=== PATIENT | male | born 1955 | race Caucasian/White ===

== ENCOUNTER 2020-10-06 08:42 | Outpatient (CLI) | payer MEDICARE, OTHER, SELFPAY ==
--- NOTE | 2020-10-06 09:00 | US_ITS ---
WS: [id number] ULTRASOUND THYROID TECHNIQUE: Ultrasound of the thyroid. CLINICAL INFORMATION: THYROIDITIS COMPARISON: None. FINDINGS: Thyroid: Right and left thyroid lobes are normal in size and echotexture. No thyroid nodules are pres ent. Incidental tiny colloid cyst right thyroid measuring 3 mm Right thyroid lobe: 5.6 cm x 1.7 cm x 1.8 cm Left thyroid lobe: 6.0 cm x 1.8 cm x 1.5 cm. Isthmus: 0.3 mm. Cervical lymphadenopathy: None. US/US thyroid [id number] IMPRESSION: Unremarkable thyroid ultrasound
== END 2020-10-06 08:43 | disposition home or self-care (01) ==
LOC: RAD 08:55
PROVIDERS: PCP Internal Medicine; Visit Provider Internal Medicine
DX: E06.9 Thyroiditis, unspecified (principal)
CPT/HCPCS: 76536

== ENCOUNTER → 2020-11-23 08:19 | Outpatient (BNVA) | payer MEDICARE, OTHER, SELFPAY | PROVIDERS: PCP Internal Medicine; Visit Provider Urology | DX: R79.89 Other specified abnormal findings of blood chemistry (principal); G89.29 Other chronic pain; Z12.5 Encounter for screening for malignant neoplasm of prostate | CPT/HCPCS: 81003; 84403; G0103 ==

== ENCOUNTER → 2021-02-04 08:38 | Outpatient (BNVA) | payer MEDICARE, OTHER, SELFPAY | PROVIDERS: PCP Internal Medicine; Referring Provider Internal Medicine; Visit Provider Specialist | DX: M25.531 Pain in right wrist (principal); Z20.822 Contact with and (suspected) exposure to COVID-19 | CPT/HCPCS: 73110; 87635 ==

== ENCOUNTER 2021-02-09 05:47 | Day surgery (SDC) | payer MEDICARE, OTHER, SELFPAY ==
[2021-02-08 13:58] VITALS: BMI 27.7
[2021-02-09] VITALS (8 sets, daily range): BP systolic 83–148; BP diastolic 68–99; PULSE 64–83; RESP 17–18; TEMP 36.3–37.2; O2SAT 95–98
[2021-02-09] MEDS: acetaminophen 1,000 MG/100 ML PIGGYBACK 400 MG IV (06:34)
[2021-02-09] MEDS: CELEcoxib 200 mg Capsule 400 MG PO (06:35)
[2021-02-09] MEDS: sodium chloride 0.9% 1,000 ML 30 ML IV (06:35)
--- NOTE | 2021-02-09 06:53 | W.PM.OPSUD ---
Surgery/Procedure H&P Update DATE OF PROCEDURE: February 09, 2021 DATE H&P PERFORMED: 02/01/21 H&P UPDATE INFORMATION: I have reviewed H&P completed within last 30 days, No changes to prior documentation and H&P is in [facility] [place] on date indicated PREOP DIAGNOSIS: Right Carpal Tunnel PLANNED PROCEDURE: Operation Date: 02/09/21 07:10 Proposed Procedures p Carpal Tunnel Release 02801 G64.01(Right) - Vera Perdomo MD Related Problem List Diagnoses (1) Carpal tunnel syndrome on right:
--- NOTE | 2021-02-09 07:20 | ANES.PREANE2 ---
Pre-Anesthetic Assessment Pre-Anesthetic Assessment: Height/Weight: Height 1.85 m Weight 95.254 kg Temp Pulse Resp BP Pulse Ox 97.4 F L 68 18 148/99 95 02/09/21 06:11 02/09/21 06:11 02/09/21 06:11 02/09/21 06:11 02/09/21 06:11 Preop Diagnosis: Right Carpal Tunnel Proposed Procedure: Operation Date: 02/09/21 07:10 Proposed Procedures p Carpal Tunnel Release 51737 G64.01(Right) - Vera Perdomo MD Was Beta Allyson taken within 24 hours: Yes Was Clonidine taken within 24 hours: N/A Last intake: Intake Last Liquid Date 02/08/21 Last Liquid Time 20:00 Last Solid Date 02/08/21 Last Solid Time 20:00 Social: Social History: No alcohol and No tobacco Exam: Pre-Anes Outpt Exam: alert, oriented x 3, clear to auscultation bilaterally and regular rate & rhythm Airway: Submandibular: WNL Cervical ROM: WNL MP: 2 Dentition: Full CV/HEM: CV/HEM: HTN GI: GI: GERD Musc/skel: Musc/skel: Lower Back Pain Anesthetic Plan: ASA status: 3 Anesthesia: MAC and Regional (specify below) (Dina bonilla) Risk of > 500 ml blood loss (7ml/kg in children): No Meds/Allergies Current Medications: Current Medications Generic Name Dose Route Start Last Admin Trade Name Freq PRN Reason Stop Dose Admin Sodium Chloride 1,000 mls @ 30 ml s/hr 02/09/21 06:15 02/09/21 06:35 Sodium Chloride 0.9% IV 02/10/21 06:14 30 mls/hr .Q24H VENESSA Administration PFSH Anesthesia PFSH: Medical History Chronic pain Hyperuricemia Hypogonadism Surgical History H/O cardiac catheterization H/O endoscopy H/O foot surgery H/O rotator cuff surgery History of back surgery Family History Mother Glaucoma Father Heart disease Hypertension Social History Smoking and tobacco status: never smoked Alcohol intake: never Marital status: Data Anesthesia Cardiac Studies: No Data to Display
--- NOTE | 2021-02-09 08:14 | PM.OP ---
Operative Report Date of procedure: February 09, 2021 Pre-op Diagnosis: Right Carpal Tunnel Post-op diagnosis: same Post-op Findings: Purplish discoloration with significant compression on the median nerve Procedure Done: Right carpal tunnel release Specimens removed/disposition: None Pathology: none sent Surgeon: Vera Perdomo Transfer Driver: None Anesthesia: MAC (With Dina block, ASA 3) Estimated blood loss (mL): 0 Tourniquet time (min): 29 Tourniquet time: At 250 mmHg IV fluids (mL): 200 Urine output (mL): 0 Urine output: No Gamez Complications: None Findings: Significant purplish discoloration and compression across the median nerve. Condition: stable Disposition: PACU (Then to same-day surgery for discharge to home with family) Brief History: This 65-year-old gentleman presented with complaints of significant numbness and tingling in bilateral hands. The right was greater than the left, and after discussion and evaluation, the patient wished to proceed with operative intervention. Risks and complications including nerve injury were discussed. He wished to proceed first with the right and is planning to possibly proceed with the left release in the near future. Procedure: The patient was brought to the operating theater. The patient had a Dina block with MAC. The tourniquet was elevated to 250 mmHg for a total tourniquet time of 29 minutes. The patient was also given Ancef 2 g preoperatively. The arm was then prepped and draped with DuraPrep in usual fashion with the arm draped free. A surgical pause was performed. At the time, the surgical pause, we confirmed the site and side of surgery. We also confirmed the patient's identity, appropriate and timely administration of preoperative antibiotics and preoperative surgical markings. An incision was then made along the thenar crease. The incision crossed the wrist joint in a curvilinear fashion. Dissection continued through skin and soft tissues using a scalpel. The palmaris longus was identified along with the transverse carpal ligament. Each of these was released carefully to avoid injury to the median nerve. We were able to dissect gently into the carpal canal which was noted to be quite tight with significant compression across the median nerve. The nerve was visualized and was an hourglass shape with significant purplish discoloration. The canal was subsequently palpated to assure there was no bony encroachment upon the canal. There was a quite thickened fibrous tissue within the canal, and this was opened longitudinally as well. The canal was then palpated distally and proximally to assure that my small finger was passed easily without impingement. Finding this to be so, attention was directed to closure. The wound was irrigated with ropivacaine plain. It was then closed with 3-0 nylon in an interrupted mattress fashion. Sterile dressing was then placed consisting of Xeroform gauze, fluffed fluffs, sterile soft roll, a volar splint, and an Clemente wrap. The tourniquet was released after 29 minutes. There were no complications. There were no specimens. The procedure was well tolerated. Plan is the patient will be discharged home. Associated Problem List Diagnoses (1) Carpal tunnel syndrome on right:
--- NOTE | 2021-02-09 13:13 | ANE.PACU2 ---
Inpatient post-anesthesia follow up: Airway intact: Yes Vital signs: Temperature 98.3 F Pulse Rate 64 Respiratory Rate 18 Blood Pressure 132/97 Pulse Oximetry 98 Oxygen Delivery Me thod Room Air Oxygen Flow Rate 6 Fraction of Inspir ed Oxygen Hydration adequate: Yes Nausea and vomiting: No Pain level: 1 Mental status: Baseline
== END 2021-02-09 08:43 | disposition home or self-care (01) ==
PROVIDERS: PCP Internal Medicine; Visit Provider Specialist
PROC: (CPT 64721; principal; 2021-02-09 07:00)
DX: G56.01 Carpal tunnel syndrome, right upper limb (principal); I10 Essential (primary) hypertension; K21.9 Gastro-esophageal reflux disease without esophagitis
CPT/HCPCS: 64721; 96365; J0690; J2250; J2405; J2704; J3490; J7030

== ENCOUNTER → 2021-02-23 08:35 | Outpatient (BNVA) | payer MEDICARE, OTHER, SELFPAY | PROVIDERS: PCP Internal Medicine; Visit Provider Internal Medicine | DX: E78.2 Mixed hyperlipidemia (principal) | CPT/HCPCS: 80053; 80061; 84550 ==

== ENCOUNTER → 2021-02-24 09:37 | Outpatient (BNVA) | payer MEDICARE, OTHER, SELFPAY | PROVIDERS: PCP Internal Medicine; Visit Provider Specialist | DX: M79.641 Pain in right hand (principal) | CPT/HCPCS: 73130 ==

== ENCOUNTER → 2021-03-01 12:53 | Outpatient (BNVA) | payer MEDICARE, OTHER, SELFPAY | PROVIDERS: PCP Internal Medicine; Visit Provider Urology | DX: Z12.5 Encounter for screening for malignant neoplasm of prostate (principal); R79.89 Other specified abnormal findings of blood chemistry | CPT/HCPCS: 84403 ==

== ENCOUNTER → 2021-05-19 08:15 | Outpatient (BNVA) | payer MEDICARE, OTHER, SELFPAY | PROVIDERS: PCP Internal Medicine; Visit Provider Urology | DX: R79.89 Other specified abnormal findings of blood chemistry (principal) | CPT/HCPCS: 84403 ==

== ENCOUNTER → 2021-06-02 09:03 | Outpatient (BNVA) | payer MEDICARE, OTHER, SELFPAY | PROVIDERS: PCP Internal Medicine; Visit Provider Urology | DX: R79.89 Other specified abnormal findings of blood chemistry (principal) | CPT/HCPCS: 81003 ==

== ENCOUNTER → 2021-06-07 11:22 | Outpatient (BNVA) | payer MEDICARE, OTHER, SELFPAY | PROVIDERS: PCP Internal Medicine; Referring Provider Internal Medicine; Visit Provider Specialist | DX: M25.512 Pain in left shoulder (principal) | CPT/HCPCS: 73030 ==

== ENCOUNTER → 2021-06-21 08:39 | Outpatient (BNVA) | payer MEDICARE, OTHER, SELFPAY | PROVIDERS: PCP Internal Medicine; Visit Provider Specialist | DX: M25.512 Pain in left shoulder (principal); G56.02 Carpal tunnel syndrome, left upper limb | CPT/HCPCS: 73110; 87635 ==

== ENCOUNTER 2021-06-25 06:58 | Day surgery (SDC) | payer MEDICARE, OTHER, SELFPAY ==
[2021-06-24 13:00] VITALS: BMI 28.2
[2021-06-25 07:20] VITALS: BP 148/106; PULSE 74; RESP 18; TEMP 36.7; O2SAT 96
[2021-06-25] MEDS: acetaminophen 1,000 MG/100 ML PIGGYBACK 400 MG IV (07:41)
[2021-06-25] MEDS: sodium chloride 0.9% 1,000 ML 30 ML IV (07:41)
[2021-06-25] MEDS: CELEcoxib 200 mg Capsule 400 MG PO (07:41)
--- NOTE | 2021-06-25 07:46 | P.HPUD_ITS ---
Surgery/Procedure H&P Update DATE OF PROCEDURE: June 25, 2021 DATE H&P PERFORMED: 06/21/21 H&P UPDATE INFORMATION: I have reviewed H&P completed within last 30 days, I have examined patient prior to procedure, No changes to prior documentation and H&P is in [facility] EMR on date indicated PREOP DIAGNOSIS: Left carpal tunnel syndrome and left long trigger finger PLANNED PROCEDURE: Operation Date: 06/25/21 08:25 Proposed Procedures p Carpal Tunnel Release [id number] 18034 G56.02 M65.30(Left) - Vera Perdomo MD s Trigger Finger Release left middle finger(Left) - Vera Perdomo MD Related Problem List Diagnoses (1) Trigger finger, left middle finger: (2) Carpal tunnel syndrome, left:
--- NOTE | 2021-06-25 08:26 | ANES.PREANE2 ---
Pre-Anesthetic Assessment Pre-Anesthetic Assessment: Height/Weight: Height 1.85 m Weight 97.069 kg Temp Pulse Resp BP Pulse Ox 98.1 F 74 18 148/106 96 06/25/21 07:20 06/25/21 07:20 06/25/21 07:20 06/25/21 07:20 06/25/21 07:20 Preop Diagnosis: Left carpal tunnel syndrome and left long trigger finger Proposed Procedure: Operation Date: 06/25/21 08:25 Proposed Procedures p Carpal Tunnel Release 39113 93130 G56.02 M65.30(Left) - Vera Perdomo MD s Trigger Finger Release left middle finger(Left) - Vera Perdomo MD Was Beta Allyson taken within 24 hours: Yes Was Clonidine taken within 24 hours: N/A Last intake: Intake Last Liquid Date 06/24/21 Last Liquid Time 22:00 Last Solid Date 06/24/21 Last Solid Time 21:30 Social: Social History: No alcohol and No tobacco Exam: Pre-Anes Outpt Exam: alert, oriented x 3, clear to auscultation bilaterally and regular rate & rhythm Airway: Submandibular: WNL Cervical ROM: WNL MP: 2 Dentition: Full CV/HEM: CV/HEM: HTN GI: GI: GERD Metabolic: Metabolic: Hyperlipidemia Anesthetic Plan: ASA status: 2 Anesthesia: MAC and Regional (specify below) (Dina bonilla) Risk of > 500 ml blood loss (7ml/kg in children): No Meds/Allergies Current Medications: Current Medications Generic Name Dose Route Start Last Admin Trade Name Freq PRN Reason Stop Dose Admin Sodium Chloride 1,000 mls @ 30 ml s/hr 06/25/21 07:15 06/25/21 07:41 Sodium Chloride 0.9% IV 06/26/21 07:14 30 mls/hr .Q24H VENESSA Administration PFSH Anesthesia PFSH: Medical History Chronic pain Hyperuricemia Hypogonadism Surgical History H/O cardiac catheterization H/O endoscopy H/O foot surgery H/O rotator cuff surgery History of back surgery Family History Mother Glaucoma Father Heart disease Hypertension Social History Alcohol intake: never Marital status: History of recent travel: No Data Anesthesia Cardiac Studies: No Data to Display
[2021-06-25 09:02] VITALS: BP 154/106; PULSE 74; RESP 16; TEMP 36.3; O2SAT 98
[2021-06-25 09:05] VITALS: BP 145/102; PULSE 67; RESP 17; O2SAT 92
[2021-06-25 09:11] VITALS: BP 122/90; PULSE 65; RESP 16; TEMP 36.5; O2SAT 94
[2021-06-25 09:16] VITALS: BP 136/94; PULSE 74; RESP 18; O2SAT 97
--- NOTE | 2021-06-25 09:40 | PM.OP ---
Operative Report Date of procedure: June 25, 2021 Pre-op Diagnosis: Left carpal tunnel syndrome and left long trigger finger Post-op diagnosis: same Post-op Findings: Significant compression across the median nerve with obvious synovitis of the long finger tendons Procedure Done: Left carpal tunnel release and left long trigger finger release Pathology: none sent Surgeon: Vera Perdomo Channeling Machine Runner: None Anesthesia: MAC (With [place] block, ASA 3) Estimated blood loss (mL): 0 Tourniquet time (min): 43 Tourniquet time: At 250 mmHg IV fluids (mL): 500 Urine output (mL): 0 Urine output: No Gamez Complications: None Findings: Significant compression across the median nerve with hourglass shape and purplish discoloration. Very tight A1 fran with fluid around the tendons and evidence of synovitis. Condition: stable Disposition: PACU (Then to same-day surgery for discharge) Brief History: This 65-year-old gentleman presented with complaints of left carpal tunnel syndrome. While he was visiting in the office, he also noted that his long finger cracked . Upon evaluation he was found to have a significant left long finger trigger finger. After discussion, the patient wished to have both the carpal tunnel and trigger finger release simultaneously. Risks and complications were discussed with him. Consents were signed and questions were answered. Procedure: The patient was brought to the operating theater. The patient had a Dina block with MAC. The tourniquet was elevated to 250 mmHg for a total tourniquet time of 43 minutes. The patient was also given Ancef 2 g preoperatively. The arm was then prepped and draped with DuraPrep in usual fashion with the arm draped free. A surgical pause was performed. At the time, the surgical pause, we confirmed the site and side of surgery. We also confirmed the patient's identity, appropriate and timely administration of preoperative antibiotics and preoperative surgical markings. An incision was then made along the thenar crease. The incision crossed the wrist joint in a curvilinear fashion. Dissection continued through skin and soft tissues using a scalpel. The palmaris longus was identified along with the transverse carpal ligament. Each of these was released carefully to avoid injury to the median nerve. We were able to dissect gently into the carpal canal which was noted to be quite tight with significant compression across the median nerve. The nerve was visualized and was an hourglass shape with purplish discoloration. The canal was subsequently palpated to assure there was no bony encroachment upon the canal. The canal was then palpated distally and proximally to assure that my small finger was passed easily without impingement. Finding this to be so, attention was directed to closure. The wound was irrigated with ropivacaine plain. It was then closed with 3-0 nylon in an interrupted mattress fashion. An incision was then made along the distal palmar crease beneath the long finger. Dissection continued through the skin to the subcutaneous tissues using a scalpel. Blunt dissection was then utilized to spread soft tissues and allow access to the A1 fran. It was then incised longitudinally and sharply using a knife. This was accomplished without difficulty and atraumatically. Once the A1 fran was released, tendons were brought up out of the wound and evaluated. There were no gross masses on the tendons. Tendons were returned to their normal position. We then irrigated the wound and subsequently closed it with 3-0 nylon with an interrupted mattress type suture. Following closure of the wounds, both wounds were injected with bupivacaine into the subcutaneous tissues as a local anesthetic. Sterile dressing was then placed consisting of Dermabond, OpSite, fluffed fluffs, sterile soft roll, a volar splint, and an Clemente wrap. The tourniquet was released after 43 minutes. There were no complications. There were no specimens. The procedure was well tolerated. Plan is the patient will be discharged home. Associated Problem List Diagnoses (1) Trigger finger, left middle finger: (2) Carpal tunnel syndrome, left:
[2021-06-25 09:51] VITALS: BP 128/98; PULSE 67; RESP 18; O2SAT 96
[2021-06-25] MEDS: HYDROcodone-acetaminophen 5-325 mg Tablet 1 TAB PO (09:52)
--- NOTE | 2021-06-25 13:34 | ANE.PACU2 ---
Inpatient post-anesthesia follow up: Airway intact: Yes Vital signs: Temperature 97.7 F Pulse Rate 67 Respiratory Rate 18 Blood Pressure 128/98 Pulse Oximetry 96 Oxygen Delivery Me thod Room Air Oxygen Flow Rate Fraction of Inspir ed Oxygen Hydration adequate: No Nausea and vomiting: Yes Pain level: 1 Mental status: Baseline
== END 2021-06-25 10:02 | disposition home or self-care (01) ==
PROVIDERS: PCP Internal Medicine; Visit Provider Specialist
PROC: (CPT 64721; principal; 2021-06-25 08:15)
PROC: (CPT 26055; 2021-06-25 08:15)
DX: G56.02 Carpal tunnel syndrome, left upper limb (principal); M65.332 Trigger finger, left middle finger; I10 Essential (primary) hypertension; K21.9 Gastro-esophageal reflux disease without esophagitis; E78.5 Hyperlipidemia, unspecified
CPT/HCPCS: 26055; 64721; 96365; J0690; J2250; J3010; J3490; J7030

== ENCOUNTER 2021-07-14 09:20 | Outpatient (CLI) | payer MEDICARE, OTHER, SELFPAY ==
--- NOTE | 2021-07-14 09:30 | MR_ITS ---
WS: [id number] MRI LEFT SHOULDER HISTORY: M25.519 - Pain in unspecified shoulder COMPARISON: Radiographs 06/07/2021 TECHNIQUE: Multiplanar sequences of the shoulder joint are submitted. Mild AC joint arthritis and hypertrophy. Very minimal encroachment upon the supraspinatus tendon and muscle. No os acromion. Biceps tendon is in normal position. Mildly high riding humeral head. Mild narrowing of the glenohumeral joint mildly lobulated complex fl uid along the subdeltoid bursa over the posterior lateral humeral head. Fluid is closely associated w ith the bursal surface of the supraspinatus tendon. There is a low signal mass over the posterior hum eral head measuring 5 mm consistent with a calcific deposit. The rotator cuff appears to be intact. T here is some tendinopathy in the distal supraspinatus. No atrophy or edema. Coracohumeral ligament is normal. MR/MR shoulder LT wo con* [id number] IMPRESSION: 1. Mildly complex, lobulated subdeltoid bursal distention with an associated calcific deposit measuring 5 mm. Findings consistent with calcific tendinitis. 2. Mild AC joint arthritis. 3. No tendon tear or retraction identified.
== END 2021-07-14 09:21 | disposition home or self-care (01) ==
LOC: RADSHAW 09:24
PROVIDERS: PCP Internal Medicine; Visit Provider Specialist
DX: M13.812 Other specified arthritis, left shoulder (principal)
CPT/HCPCS: 73221

== ENCOUNTER → 2021-08-03 09:19 | Outpatient (BNVA) | payer MEDICARE, OTHER, SELFPAY | PROVIDERS: PCP Internal Medicine; Referring Provider Specialist; Visit Provider Anesthesiology Pain Medicine | DX: G89.29 Other chronic pain (principal); M47.816 Spondylosis without myelopathy or radiculopathy, lumbar region; M25.512 Pain in left shoulder; Z79.891 Long term (current) use of opiate analgesic | CPT/HCPCS: 99204 ==

== ENCOUNTER → 2021-08-17 09:47 | Outpatient (BNVA) | payer MEDICARE, OTHER, SELFPAY | PROVIDERS: PCP Internal Medicine; Visit Provider Anesthesiology Pain Medicine | DX: G89.29 Other chronic pain (principal); M19.012 Primary osteoarthritis, left shoulder; M54.9 Dorsalgia, unspecified; M79.606 Pain in leg, unspecified; Z79.891 Long term (current) use of opiate analgesic | CPT/HCPCS: 20610; 99213; J1030; J3490 ==

== ENCOUNTER 2021-08-17 10:21 | Outpatient (CLI) | payer MEDICARE, OTHER, SELFPAY ==
--- NOTE | 2021-08-17 10:57 | XR_ITS ---
WS: [id number] LUMBAR SPINE TECHNIQUE: 5 views of the lumbar spine CLINICAL INFORMATION: M47.816 - Spondylosis without myelopathy or radiculopathy... COMPARISON: None. FINDINGS: Five enh-bak-xbhjpwv lumbar vertebral bodies. Pedicle screw fixation L4-S1 with interconnecting rods. Disc space narrowing worse L4-L5 and L5-S1. Vacuum disc phenomenon L5-S1. Slight retrolisthesis L3 o n L4. Disc space narrowing worse at L3-L4 L4-L5 and L5-S1. Aortic calcification. IMPRESSION: 1. Prior postoperative changes pedicle screw fixation L4-S1 with interconnecting rods. Hardware appe ars in good position. Hardware appears intact. 2. Disc space narrowing worse at L3-L4 L4-L5 and L5-S1. Vacuum disc phenomenon L5-S1.\ 3. Trace retrolisthesis L3 on L4. 4. Aortic calcification.
== END 2021-08-17 10:22 | disposition home or self-care (01) ==
PROVIDERS: PCP Internal Medicine; Visit Provider Anesthesiology Pain Medicine
DX: M47.816 Spondylosis without myelopathy or radiculopathy, lumbar region (principal); I70.0 Atherosclerosis of aorta
CPT/HCPCS: 72110

== ENCOUNTER → 2021-09-28 08:30 | Outpatient (BNVA) | payer MEDICARE, OTHER, SELFPAY | PROVIDERS: PCP Internal Medicine; Visit Provider Urology | DX: R79.89 Other specified abnormal findings of blood chemistry (principal); Z12.5 Encounter for screening for malignant neoplasm of prostate | CPT/HCPCS: 84403 ==

== ENCOUNTER → 2021-10-19 10:05 | Outpatient (BNVA) | payer MEDICARE, OTHER, SELFPAY | PROVIDERS: PCP Internal Medicine; Referring Provider Internal Medicine; Visit Provider Orthopaedic Surgery | DX: M54.9 Dorsalgia, unspecified (principal); G89.29 Other chronic pain | CPT/HCPCS: 72072 ==

== ENCOUNTER 2021-11-23 08:38 | Outpatient (CLI) | payer MEDICARE, OTHER, SELFPAY ==
--- NOTE | 2021-11-23 08:50 | MR_ITS ---
WS: [id number] MRI LUMBAR SPINE WITH AND WITHOUT CONTRAST HISTORY: M54.9 - Dorsalgia, unspecified COMPARISON: Lumbar spine radiograph 08/17/2021 TECHNIQUE: Sagittal and axial multisequence imaging is submitted. Sagittal and axial T1 fat sat seque nces post-MultiHance 20 cc IV. Anterior cervical fusion is noted in the cervical region. No cord compression. Mild increase in thora cic kyphosis. L5 anterolisthesis by 3 mm. Otherwise alignment is normal. Mild disc space narrowing and desiccation throughout the lumbar spine but most significant at L4-5 and L5-S1. No acute fracture or marrow edema . Posterior fusion hardware extends from L4 to S1, no posterior fixation screws at the L5 level. Conus terminates normally at L1. L1-L2: No stenosis. L2-L3: Mild bilateral facet joint arthritis. No significant stenosis. L3-L4: Annular disc bulging with a central disc protrusion contacting and displacing the ventral thec al sac. Disc extends into the subarticular recesses and subarticular foramina. Mild ligamentum flavum and facet arthritis. Disc is contacting the RIGHT L3 and L4 nerve roots. Very slight contact on the LEFT L4 nerve root. Mild RIGHT foraminal stenosis. L4-L5: Mild annular disc bulging with a RIGHT paracentral shallow disc protrusion. Mild flattening an d effacement of ventral CSF. Mild bilateral foraminal narrowing due to disc and osteophyte disease an d facet arthritis. L5-S1: Unroofing of the disc due to anterolisthesis of L5. Mild annular disc bulging with moderate li gamentum flavum and facet arthritis. Annular disc bulging is contacting the undersurface of the LEFT exiting L5 nerve root. Laminectomy defect. No discitis or osteomyelitis. No enhancing collections. MR/MR lumbar spine wo/w con [id number] IMPRESSION: 1. Status post L4-S1 posterior lumbar fusion. 2. No discitis or osteomyelitis. 3. Annular disc bulge at L3-4 with a central disc protrusion contacting the th ecal sac and extending into the subarticular recesses. Mild central with bilate ral subarticular recess and RIGHT foraminal stenosis at L3-4. Slightly greater contact on the LEFT exiting L4 nerve root. There is also mild contact on the tr aversing L3 and L4 nerve roots. 4. Annular disc bulging at L5-S1 with mild contact on the undersurface of the LEFT exiting L5 nerve root. 5. Slight anterolisthesis of L5.
[2021-11-23] MEDS: gadobenate dimeglumine 20 mL vial IV (10:09)
== END 2021-11-23 08:39 | disposition home or self-care (01) ==
LOC: RAD 08:43
PROVIDERS: PCP Family Medicine; Visit Provider Orthopaedic Surgery
DX: Z98.1 Arthrodesis status (principal); G89.29 Other chronic pain; M51.26 Other intervertebral disc displacement, lumbar region; M48.061 Spinal stenosis, lumbar region without neurogenic claudication
CPT/HCPCS: 72158

== ENCOUNTER → 2021-11-29 11:25 | Outpatient (BNVA) | payer MEDICARE, OTHER, SELFPAY | PROVIDERS: PCP Family Medicine; Visit Provider Family Medicine | DX: I10 Essential (primary) hypertension (principal); M48.062 Spinal stenosis, lumbar region with neurogenic claudication | CPT/HCPCS: 80053; 80061; 82043; 85025 ==

== ENCOUNTER → 2021-12-23 09:20 | Day surgery (SDC) | payer MEDICARE, OTHER, SELFPAY | PROVIDERS: PCP Family Medicine; Visit Provider Orthopaedic Surgery | DX: Z01.818 Encounter for other preprocedural examination (principal) | CPT/HCPCS: 85025; 93005 ==

== ENCOUNTER → 2021-12-28 08:37 | Outpatient (BNVA) | payer MEDICARE, OTHER, SELFPAY | PROVIDERS: PCP Family Medicine; Visit Provider Orthopaedic Surgery | DX: Z01.812 Encounter for preprocedural laboratory examination (principal); Z20.822 Contact with and (suspected) exposure to COVID-19 | CPT/HCPCS: 87635 ==

== ENCOUNTER 2022-01-02 06:09 | Inpatient (IN) | payer MEDICARE, OTHER, SELFPAY ==
[2022-01-02] VITALS (23 sets, daily range): BP systolic 102–165; BP diastolic 66–112; PULSE 78–92; RESP 10–25; TEMP 36.6–37.2; O2SAT 92–100; BMI 28.2
--- NOTE | 2022-01-02 | SCC_ITS ---
Procedure done: 1. L3-pelvis fusion 2. L3 - pelvis instrumentation (lumbo pelvic instrumentation) 3. L3 laminectomy with bilateral partial facetectomy 4. Computer navigation /stereotactic for the spine 5. Bone marrow aspiration right iliac crest 6. removal of deep hardware from the spine 7. autograft 8. allograft debridement of nonunion 9 seconds of fluoroscopic guidance, for a cumulative dose of 68 mGy, was provided to Dr. Colon by the radiology department. C-arm images of the lumbar spine were saved for the patient's permanent record. MARK ANTHONY
--- NOTE | 2022-01-02 06:38 | W.PM.OPSUD ---
Surgery/Procedure H&P Update DATE OF PROCEDURE: January 02, 2022 DATE H&P PERFORMED: 12/09/21 H&P UPDATE INFORMATION: I have reviewed H&P completed within last 30 days, I have examined patient prior to procedure and No changes to prior documentation PREOP DIAGNOSIS: Lumbar stenosis, Failed Hardware Lumbar spine PLANNED PROCEDURE: Operation Date: 01/02/22 07:00 Proposed Procedures p L3 to pelvis fusion, hardware removal [id number](Not Applicable) - Víctor Colon DO
[2022-01-02] MEDS: sodium chloride 0.9% 1,000 ML 30 ML IV (06:48)
[2022-01-02] MEDS: vancomycin 1,000 MG SDV 1000 MG XX (07:51)
[2022-01-02] MEDS: heparin, porcine 1,000 unit/mL INJ 10 mL 10000 UNIT XX (07:53)
--- NOTE | 2022-01-02 08:21 | P.ANESUD_ITS ---
Pre-Anesthetic Update Pre-Anesthetic Assessment: Date of Surgery/Procedure: 01/02/22 Preop Shy gnosis: Lumbar stenosis, Failed Hardware Lumbar spine Proposed Procedure: Operation Date: 01/02/22 07:00 Proposed Procedures p L3 to pelvis fusion, hardware removal [id number](Not Applicable) - Víctor Colon, DO Any changes to Pre-Anesthetic Assessment?: No Last Intake: Intake Last Liquid Date 01/01/22 Last Liquid Time 21:30 Last Solid Date 01/01/22 Last Solid Time 21:30 Labs Last 48hrs: Blood Bank 01/02/22 06:48 Blood Type A Positive Rho(D) Type Positive Antibody Screen Negative Vitals: Temperature 97.8 F 01/02/22 06:10 Temperature Source Temporal Artery S can 01/02/22 06:10 Pulse Rate 90 01/02/22 06:10 Pulse Rhythm 01/02/22 06:51 Pulse Strength 3+ Normal 01/02/22 06:51 Respiratory Rate 18 01/02/22 06:10 Blood Pressure 133/112 01/02/22 06:10 Blood Pressure Phuong n 119 01/02/22 06:10 Pulse Oximetry 98 01/02/22 06:10 Oxygen Delivery Me thod 01/02/22 06:51 Exam: Pre-Anes Outpt Exam: alert, oriented x 3, clear to auscultation bilaterally and regular rate & rhythm Cardiac Studies: No Data to Display
--- NOTE | 2022-01-02 11:13 | XR_ITS ---
WS: [id number] Exam: XR lumbar spine 2-3V* [id number] Date/Time of Exam: 01/02/2022 11:13 AM Reason For Exam: OR PICS Intraoperative AP and lateral C-arm images of the lumbar spine and pelvis are submitted for evaluatio n. There is interbody fusion of the spine from L3 to S1 with pedicle screws and posterior rods. Screws a lso span the bilateral SI joints. A disc spacer is noted at L5-S1. No other significant finding on th is limited series.
--- NOTE | 2022-01-02 11:36 | P.OP_ITS ---
Operative Report Date of procedure: January 02, 2022 Pre-op diagnosis: Preop Diagnosis Lumbar stenosis, Failed Hardware Lumbar spine Post-op diagnosis: same Procedure done: 1. L3-pelvis fusion 2. L3 - pelvis instrumentation (lumbo pelvic instrumentation) 3. L3 laminectomy with bilateral partial facetectomy 4. Computer navigation /stereotactic for the spine 5. Bone marrow aspiration right iliac crest 6. removal of deep hardware from the spine 7. autograft 8. allograft debridement of nonunion Surgeon: Víctor Colon Building Services Coordinator: David Gorman Building Services Coordinator: The certified surgical technologist, David Gorman, PAC was needed for his expertise under the microscope. He was important and necessary throughout the procedure to complete in a safe and timely manner. He assisted with patient positioning prepping and draping tissue retraction suctioning of the operative field protection of the dural sac and tissue closure Estimated blood loss (mL): 400 Procedure: 1. L3-pelvis fusion 2. L3 - pelvis instrumentation (lumbo pelvic instrumentation) 3. L3 laminectomy with bilateral partial facetectomy 4. Computer navigation /stereotactic for the spine 5. Bone marrow aspiration right iliac crest 6. removal of deep hardware from the spine 7. autograft 8. allograft 9. debridement of nonunion Patient was brought to the operative suite. After undergoing anesthesia neuro monitoring leads were attached. Patient was then flipped in the prone position. All areas impingement well-padded. Patient was then prepped and draped normal sterile fashion. Skin incision made using previous skin incision from L3 down to the sacrum. Subperiosteal dissection was made from the spinous process of L3 bilaterally out to the transverse processes. As the dissection was brought distally we were careful not to get into the other previous laminectomy sites. The previous L4 and S1 screws were identified. Rods were also identified. The caps removed and the rods were removed and the screws were removed. The S1 screws were significantly loose. There were pulled out without even having to turn them. Once all the hardware was moved within the facets of L5-S1 L4-5 L3-4 and the bottom of the L2-3 facets were identified. Transverse processes of L3 were exposed. The nonunion site was debrided. Laterally in the lateral gutters down to bleeding tissue. Retractors were placed. Next attention was brought to obtaining the bone marrow aspirate. This was done using the region of cell bone marrow aspiration kit. The sharp awl was inserted bone marrow was aspirated and the blunt tube was inserted and brought down the iliac crest and then the aspiration needle was inserted and 20 cc of bone marrow aspirate were pulled out in 1 mm increments. Once bone marrow aspirate was removed it was then placed with the auto and allograft that were used later in the case. Next tension was brought to placing the fiducial. 2 pins were placed into the right iliac crest. The fiducial was attached. The C-arm was brought in and spun around the patient. Once the information was obtained it was loaded into the computer in order to facilitate using computer navigation for the spine. Next attention was brought to placing screws. Screws were placed at L5 bilaterally, L4 bilaterally, and L3 bilaterally. This was done by using the drill followed by using the gearshift that was linked to the computer navigation the gearshift was brought down screws were measured. Gearshift was removed the pedicle feeler was then used and then the appropriate size screws were placed using the computer navigation. Attempts were made at using the S1 screw however the screws were so loose previously that the holes were too large to put any screws into. Attention was then brought to placing the iliac screws. Again this was done using the computer navigation the gearshift probe was inserted through the sacrum into the ala across the SI joint into the iliac wing. Then the pedicle feeler was placed and then the computer navigated screw was placed these were 8.5 x 90 mm screws. Once all the screws were placed attention was then brought to doing the decompression. A laminectomy was performed at L3. Once the laminectomy was completed attention was brought to the facets. The laminectomy was completed using the high-speed bur curved curettes and Kerrison rongeurs laminectomy was taken down all the way to the L3-4 facets. The medial aspect of the facets were taken down with a high-speed bur and Kerrison rongeurs and curettes. The pedicle of L3 and L4 were palpated laterally and the L3 nerve roots were palpated and felt to be completely free around the L3 pedicles bilaterally. And then the L4 pedicle was identified in the L4 nerve root as it traveled around the pedicles felt to be completely free. Patient symptoms were mostly right leg pain ensure that the right L4 nerve root was completely freed up as it went out the foramen and took down the top half of the foramen. At the L4-5 level. Wounds were then irrigated. The transverse processes and of L3-L4 and L5 were decorticated this was done bilaterally. And then the autograft and allograft were mixed and packed in the lateral gutters. The rods were then attached to the screws. The rods were placed and caps were placed onto L3-L4-L5 and the iliac screws. Locking the treasure into position. This was done bilaterally as well. A deep drain was placed vancomycin powder was placed and the wound was closed in a layered fashion with 0 Vicryl 2-0 Vicryl and Monocryl suture. Sterile dry dressings were applied this was a Silverlon dressing. And patient is transferred to the PACU in stable condition.
--- NOTE | 2022-01-02 12:14 | SUR.PHASEI ---
1149 PT TO PACU 4 PT SLEEPY WITH GOOD RESP EFFORT, HOB AT 30 DEGREES, PT HAS LONG SILVALON DRESSING TO LOWER MID BACK NO DRAINAGE OR HEMATOMA NOTED, IV TO RIGHT FOREARM #20 WITH NS 700ML UP AT MOD RATE PER GRAVITY, PT HAS MAYNRAD CATHETER TO DEPENDANT DRAINAGE AND STATLOCK TO LT INNER THIGH. BILATERAL SCDS ON AND WORKING. PT ID BAND AND BLOOD BAND TO RT WRIST, PT ID'D WITH 2 IDENTIFIERS, PT ORALLY SUCTIONED WITH LARGE AMT CLEAR SECRETIONS NOTED. 1215 PT OPENS EYES TO VOICE NOW, BUT REMAINS VERY SEDATED, PT KNOWS NAME AND COUGHS TO COMMAND BUT DOES NOT VERBALIZE, BILAT PEDAL PULSES MARKED AND PT ABLE TO MOVE TOES PT IS TOO SLEEPY TO FLEX OR EXTEND FEET TO COMMAND AT THIS TIME.
--- NOTE | 2022-01-02 12:22 | SUR.PHASEI ---
1150 PT HAS A EMMY DRAIN TO LOWER BACK INCISION, WITH SMALL AMT RED DRAINAGE NOTED DRAIN COMPRESSED TO ACHIEVE GOOD SUCTION. APPROX 10ML DRAINAGE IN CONTAINER.
--- NOTE | 2022-01-02 12:34 | SUR.PHASEI ---
1220 PT MORE ALERT, VERBALLY DENIES PAIN AND NAUSEA, PT COUGHING OFF AND ON, PT IS ABLE TO SWALLOW WITHOUT DIFFICULTY, ENCOURAGED TO COUGH AND CLEAR SECRETIONS. SUCTION NOT NEEDED NOW, VSS PT AWAKE ENOUGH TO DO DORSAL FLEX AND EXTENSION TO COMMAND WITH RT FOOT SLIGHTLY WEAKER ON FLEX.
[2022-01-02] MEDS: HYDROmorphone 1 mg/mL INJ 1 mL 0.5 MG IVP (12:47)
--- NOTE | 2022-01-02 12:56 | SUR.PHASEI ---
1247 PT MORE ALERT, PT ASSISTED IN ROLLING TO RT SIDE, LOG ROLLED, DRESSING TO LOWER BACK D/I PT CONTINUES TO C/O OF PAIN RATED 7/10 NOW, SEE PAIN MED GIVEN , USED DILAUDID ORDERED.
--- NOTE | 2022-01-02 12:58 | ANE.PACU2 ---
Inpatient post-anesthesia follow up: Airway intact: Yes Vital signs: Temperature 98.7 F Pulse Rate 86 Respiratory Rate 25 Blood Pressure 110/66 Pulse Oximetry 94 Oxygen Delivery Me thod Room Air Oxygen Flow Rate 6 Fraction of Inspir ed Oxygen Hydration adequate: Yes Nausea and vomiting: No Pain level: 3 Mental status: Baseline
--- NOTE | 2022-01-02 13:26 | SUR.PHASEI ---
1315 UPDATED, REPORT CALLED , WAITING FOR ROOM TO BE CLEANED. PT SLEEPS IF NOT DISTURBED.
--- NOTE | 2022-01-02 13:32 | SUR.PHASEI ---
1332 DRAIN EMPTIED OF 125ML RED DRAINAGE EMPTIED, PT SLEEPS IF NOT DISTURBED VSS. UPDATED , STILL WAITING FOR ROOM.
[2022-01-02] MEDS: HYDROcodone-acetaminophen 7.5-325 mg Tablet 1 TAB PO ×2 (14:18→21:07)
[2022-01-02] MEDS: lactated ringers 1,000 ML 90 ML IV (17:21)
[2022-01-02] MEDS: docusate sodium 100 mg Capsule PO (17:21)
[2022-01-02] MEDS: cetirizine 10 mg Tablet PO (17:22)
[2022-01-02] MEDS: morphine 4 mg/mL SDV 1 mL 2 MG IVP (17:22)
[2022-01-02] MEDS: ketorolac 30 mg/mL INJ IVP (19:48)
[2022-01-02] MEDS: metoprolol succinate ER (24 HR) 50 mg Tablet PO (21:07)
[2022-01-02] MEDS: mirtazapine 15 mg Tablet PO (21:53)
[2022-01-03] VITALS: BP 112/69; PULSE 89; RESP 16; TEMP 36.9; O2SAT 92
[2022-01-03 01:47] VITALS: RESP 18
[2022-01-03] MEDS: morphine 4 mg/mL SDV 1 mL 2 MG IVP (01:47)
[2022-01-03 04:00] VITALS: BP 121/72; PULSE 90; RESP 18; TEMP 36.6; O2SAT 95
[2022-01-03] MEDS: lactated ringers 1,000 ML 90 ML IV (04:02)
[2022-01-03] MEDS: enoxaparin 40 mg/0.4 mL Syringe SUBCUT (05:33)
--- NOTE | 2022-01-03 06:53 | PM.PN ---
Subjective Subjective: POD 1 Patient resting comfortably. Reports low back pain. Has some numbness in his feet. Denies any chest pain, shortness of breath, headaches. Vitals/I&O/Wt Last Vital Signs Temp 97.8 F 01/03/22 04:00 Pulse 90 01/03/22 04:00 Resp 18 01/03/22 04:00 BP 121/72 01/03/22 04:00 Pulse Ox 95 01/03/22 04:00 01/02/22 01/02/22 01/03/22 14:59 22:59 06:59 Intake Total 3460 / 3460 300 / 3760 1381.5 / 5141.5 Output Total 1125 / 1125 450 / 1575 825 / 2400 Balance 2335 / 2335 -150 / 2185 556.5 / 2741.5 Weight last 48 hrs Weight 214 lb Physical Exam Narrative: Patient presents alert and oriented x3 with a good general appearance normal mood and affect. Normal coordination normal stability. Mild tenderness around the incisional site with the incision appear to be healing nicely. No signs of erythema or drainage. No signs of infection. Patient denies any fevers or chills. 5/5 motor strength both lower extremities with negative straight leg raise bilaterally. Calves are supple no medial thigh tenderness. Pulses are 2+ at the dorsalis pedis and posterior tibial region. Good capillary refill throughout normal sensation light touch both lower extremities. Urinary Catheter Management: Gamez: Cath Placed During This Visit: yes Reason for Continuing Indwelling Catheter: Accurate Measurement of Urinary Output in Critically Ill Patients Urinary Catheter Date of Insertion: 01/02/22 Urinary Catheter Time of Insertion: 07:30 A&P Assessment and plan (1) Status post lumbar spinal fusion: Left physical therapy evaluate. We will discontinue Hemovac drain and Gamez catheter. Encourage mobilization. No bending lifting or twisting activities. Continue incentive spirometry for pulmonary toilet. As long as he is progressing nicely we will discharge him home later today. 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
--- NOTE | 2022-01-03 07:30 | PC.NURSE ---
Report received from Carol GAMBINO at this time.
[2022-01-03 07:33] VITALS: BP 128/84; PULSE 88; RESP 18; TEMP 36.6; O2SAT 97
[2022-01-03] MEDS: amlodipine 5 mg Tablet 10 MG PO (07:58)
[2022-01-03] MEDS: aspirin 81 mg EC Tablet PO (07:59)
[2022-01-03] MEDS: atorvastatin 40 mg Tablet PO (07:59)
[2022-01-03] MEDS: docusate sodium 100 mg Capsule PO (07:59)
[2022-01-03] MEDS: HYDROcodone-acetaminophen 7.5-325 mg Tablet 1 TAB PO (07:59)
[2022-01-03] MEDS: duloxetine 60 mg Capsule PO (07:59)
[2022-01-03] MEDS: allopurinol 100 mg Tablet PO (08:00)
[2022-01-03] MEDS: pantoprazole DR 40 mg Tablet PO (08:04)
--- NOTE | 2022-01-03 08:17 | PC.NURSE ---
Patient's Gamez Catheter removed at this time. Patient tolerated well. 220mls of urine in catheter
--- NOTE | 2022-01-03 11:12 | PC.NURSE ---
Hemovac removed intact at this time. Patient tolerated well. Patient has voided since removal of his catheter 250mls of clear yellow urine.
[2022-01-03 11:50] VITALS: BP 128/84; PULSE 88; RESP 18; TEMP 36.6; O2SAT 97
--- NOTE | 2022-01-03 11:51 | PC.NURSE ---
IV's removed intact. Patient tolerated well. Reviewed patient's discharge with patient and at bedside. Patient and verbalized understanding of discharge instructions including follow up appointments and pain medication to be picked up at the pharmacy. Patient wheel chaired to private car.
--- NOTE | 2022-01-04 14:45 | PM.DCS ---
Discharge Providers Date of Admission: 01/02/22 06:09 Date of Discharge: January 04, 2022 Attending Provider at Admission: Víctor Colon DO Attending Provider at Discharge: Víctor Colon DO Primary Care Provider: Thania Carbajal DO Diagnoses at Discharge Discharge Diagnosis (1) Status post lumbar spinal fusion: Status: Acute Hospital Course Hospital Course uneventful Physical Exam Urinary Catheter Management: Gamez: Cath Placed During This Visit: yes Reason for Continuing Indwelling Catheter: Accurate Measurement of Urinary Output in Critically Ill Patients Urinary Catheter Date of Insertion: 01/02/22 Urinary Catheter Time of Insertion: 07:30 Discharge Data Studies Completed and Pending Completed Studies During Hospitalization Category Date Time Status XR lumbar spine 2-3V* [id number] Routine Exams 01/02/22 11:13 Completed Laboratory Results Blood Type A Positive 01/02/22 06:48 Rho(D) Type Positive 01/02/22 06:48 Antibody Screen Negative 01/02/22 06:48 Vitals Last Vital Signs Temp 97.8 F 01/03/22 11:50 Pulse 88 01/03/22 11:50 Resp 18 01/03/22 11:50 BP 128/84 01/03/22 11:50 Pulse Ox 97 01/03/22 11:50 Discharge Plan Discharge Patient Disposition: Home Condition: Stable Prescriptions: New hydrocodone-acetaminophen 10-325 mg tablet 1 - 2 tab PO Q4H PRN (Reason: pain) 7 Days Qty: 40 0RF Continued allopurinol 100 mg tablet 100 mg PO DAILY 0RF cetirizine 5 mg tablet 5 mg PO DAILY PRN (Reason: Allergic Symptoms) 0RF aspirin [Adult Aspirin Regimen] 81 mg tablet,delayed release (DR/EC) 81 mg PO DAILY 0RF meloxicam 15 mg tablet 15 mg PO DAILY 0RF cholecalciferol (vitamin D3) 125 mcg (5,000 unit) capsule 125 mcg PO DAILY 0RF hydrocodone-acetaminophen 7.5-325 mg tablet 1 tab PO TID 30 Days Qty: 90 0RF Rx Instructions: Do not fill until 01/27/22 testosterone cypionate [Depo-Testosterone] 200 mg/mL oil 200 mg IM .Q. O. Week 0RF Rx Instructions: every 2 weeks. duloxetine 60 mg capsule,delayed release(DR/EC) 60 mg PO DAILY 90 Days Qty: 90 0RF metoprolol succinate 50 mg tablet extended release 24 hr 50 mg PO BEDTIME 90 Days Qty: 90 0RF mirtazapine 15 mg tablet 15 mg PO DAILY 90 Days Qty: 90 0RF rosuvastatin 10 mg tablet 10 mg PO DAILY 90 Days Qty: 90 0RF (DME) Bone Growth Stimulator E0748 See Rx Instructions .Route .MEDSUPPLY Qty: 1 0RF Rx Instructions: As directed amlodipine 5 mg tablet 10 mg PO DAILY 0RF No Action omeprazole 20 mg capsule,delayed release(DR/EC) 20 mg PO BID 90 Days Qty: 180 1RF Discharge Orders: Discharge Order (Routine); Ordered 01/03/22 Ordered By: David Gorman Other Ambulatory Orders: DME: Walker (Order) Location: None Selected Ordered By: Víctor Colon Referrals: Víctor Colon, [Physician] - 01/13/22 2:15 pm Discharge Diet: Advance as tolerated Discharge Activity: Increase activity as tolerated Patient Instructions: Hydrocodone/Acetaminophen (By mouth) (Vicodin, [place], Lortab), Lumbar Spinal Fusion (DC), Opioid Safety Activity Restrictions/Additional Instructions: Thank you for choosing [facility] for your care! The following is a list of instructions, from your provider, to follow upon your discharge to ensure you have the optimal recovery from your recent injury or surgery. Follow-up care is a hwang part of your treatment and safety. Be sure to make and go to all appointments and call your doctor if you are having problems. If you do not already have a follow-up appointment made, call Dr. Colon's] office in the next 1-3 days to make follow up appointment for 1 week at [phone]. It is also a good idea to know your test results and keep a list of the medicines you take. Medications will be prescribed for you at your provider's discretion. These medications are to be used as instructed; if they are taken more often that prescribed they will not be refilled early and in most cases will not be refilled at all. > When a refill is needed, you should contact barbi metzger 2-3 business days before your prescription runs out. Medications will NOT be refilled by security incident response specialist providers after hours! > Many pain medications contain Tylenol (Acetaminophen). Do not consume more than 4,000 mg of Tylenol per day in total with any combination of medications. > Pain medications can cause constipation. Please use an over the counter stool softener as directed, while taking pain medications. Consult your local pharmacist with questions or recommendations on stool softeners. If constipation persists, contact our office or your primary care provider. > While under our care, you are not to receive pain medications or other controlled substances from any other provider unless our office is notified and approves. Any attempts to do so will result in refusal to prescribe any further pain medications and possible dismissal from our practice. ? Walking is essential for the healing process after surgery. We would like you to slowly advance your walking. This should be done on relatively flat clear ground (inside or out) or can be done on a treadmill. Remember this goal does not have to happen all at once, slowly increase your distance and duration. This can be broken into more more than one walk per day as tolerated. Patients who walk as directed after surgery rarely require Physical Therapy. In the unlikely event this issue arises your provider will direct hospital staff to make the appropriate arrangements. ? No lifting over 5 pounds {a gallon of milk) or bending/twisting until further notice. Each of these activities places an unnecessary amount of stress onto the body and can impede the delicate healing process. > Instead of bending at the waist, keep your back straight and bend at the knees. > Instead of twisting your torso, keep your back straight and turn your entire body with your feet. ? You may sleep in any position which makes you comfortable. Many patients find comfort sleeping in a reclining chair. It is not abnormal to have difficulty sleeping for the first several weeks following your surgery. We recommend trying Benadry! or Tylenol PM as directed to help with your sleeping difficulties. Both medications are over the counter and available without prescription. ? NO SMOKING!!! Smoking dramatically increases the probability of developing postoperative wound infections. ? Common complaints after lumbar and/or thoracic spine surgery include, but are not limited to: numbness and/or tingling in the legs, pain around the incision and surrounding tissues, muscle spasms, or stiffness of the middle to low back. Contact our office if these symptoms persist or if an acute change occurs. ? No driving for the first 3-5days, and not while taking narcotics until seen at your follow-up appointment and cleared. There are no restrictions for riding on short trips, however if you take a longer trip, arrangements should be made to make regular stops to get out of the vehicle and stretch . ? Swelling is an unfortunate event that will take place with any surgery and is the primary source of your postoperative discomfort. While walking and regular approved activities helps control inflammation, there are additional steps you can take to minimize swelling. > Place ice over the surgical site and surrounding tissue for twenty minutes, followed by applying a low/medium heat (heating pad) for an additional twenty minutes every 1-2 hours as needed for painrelief. > You may use of over the counter anti-inflammatory medications (Ibuprofen, Motrin, Aleve, Advil, etc) as directed on the package label. These types of medicines will significantly reduce the amount of discomfort you experience after surgery from swelling. It should be noted that if you have and allergy to any of these medications, or a history of ulcers or kidney disease you should consult you primary care provider prior to starting these medications. Discharge Attestations Time Spent in Discharge Care*: less than 30 min Quality Metrics Clinical Quality Measures [ No reported AMI, CVA or VTE this stay] Coding Level of Care Code Acute [facility] note Diagnoses Status post lumbar spinal fusion Z98.1
== END 2022-01-03 11:30 | disposition home or self-care (01) | DRG 460 ==
LOC: MEDSURG 12:43
PROVIDERS: Admitting Provider Orthopaedic Surgery; PCP Family Medicine; Visit Provider Orthopaedic Surgery
PROC: 0SG1071 Fusion of 2 or more Lumbar Vertebral Joints with Autologous Tissue Substitute, Posterior Approach, Posterior Column, Open Approach (ICD-10-PCS; CPT 22612; principal; 2022-01-02 07:00)
DX: M48.062 Spinal stenosis, lumbar region with neurogenic claudication (principal); T84.226A Displacement of internal fixation device of vertebrae, initial encounter; Y79.3 Surgical instruments, materials and orthopedic devices (including sutures) associated with adverse incidents; Z98.1 Arthrodesis status; Z79.82 Long term (current) use of aspirin; Z79.891 Long term (current) use of opiate analgesic; N40.0 Benign prostatic hyperplasia without lower urinary tract symptoms; G89.29 Other chronic pain; K21.9 Gastro-esophageal reflux disease without esophagitis; E29.1 Testicular hypofunction; Z87.891 Personal history of nicotine dependence
CPT/HCPCS: 36415; 51702; 72100; 76000; 86850; 86900; 96372; 97116; 97161; 97530; C1713; C9359; J0330; J0690; J1100; J1170; J1644; J1650; J1885; J2270; J2370; J2405; J2704; J3010; J3370; J3490; J7030; P9041

== ENCOUNTER → 2022-01-13 13:53 | Outpatient (BNVA) | payer MEDICARE, OTHER, SELFPAY | PROVIDERS: PCP Family Medicine; Visit Provider Orthopaedic Surgery | DX: Z47.89 Encounter for other orthopedic aftercare (principal); Z98.890 Other specified postprocedural states; Z98.1 Arthrodesis status | CPT/HCPCS: 99024 ==

== ENCOUNTER → 2022-01-25 10:49 | Outpatient (BNVA) | payer MEDICARE, OTHER, SELFPAY | PROVIDERS: PCP Family Medicine; Visit Provider Orthopaedic Surgery | DX: Z47.89 Encounter for other orthopedic aftercare (principal); Z98.890 Other specified postprocedural states; Z98.1 Arthrodesis status | CPT/HCPCS: 99024 ==

== ENCOUNTER → 2022-02-22 10:34 | Outpatient (BNVA) | payer MEDICARE, OTHER, SELFPAY | PROVIDERS: PCP Family Medicine; Visit Provider Orthopaedic Surgery | DX: Z47.89 Encounter for other orthopedic aftercare (principal); Z98.890 Other specified postprocedural states; Z98.1 Arthrodesis status | CPT/HCPCS: 72100; 99024 ==

== ENCOUNTER 2022-03-10 13:38 | Outpatient (CLI) | payer MEDICARE, OTHER, SELFPAY ==
[2022-03-10 14:30] LABS: Prostate Specific Antigen 0.635 ng/mL (0-4)
[2022-03-10 15:06] LABS: Testosterone Total 182.7 ng/dL (193-740)
== END 2022-03-10 13:39 | disposition home or self-care (01) ==
LOC: LAB 13:41
PROVIDERS: PCP Family Medicine; Visit Provider Urology
DX: E29.1 Testicular hypofunction (principal); R79.89 Other specified abnormal findings of blood chemistry
CPT/HCPCS: 84153; 84403; 99213

== ENCOUNTER → 2022-04-05 10:11 | Outpatient (BNVA) | payer MEDICARE, OTHER, SELFPAY | PROVIDERS: PCP Family Medicine; Visit Provider Orthopaedic Surgery | DX: Z47.89 Encounter for other orthopedic aftercare (principal); Z98.1 Arthrodesis status | CPT/HCPCS: 72100; 99024 ==

== ENCOUNTER → 2022-05-13 10:40 | Outpatient (BNVA) | payer MEDICARE, OTHER, SELFPAY | PROVIDERS: PCP Family Medicine; Visit Provider Urology | DX: R79.89 Other specified abnormal findings of blood chemistry (principal) | CPT/HCPCS: 84403 ==

== ENCOUNTER → 2022-05-23 10:27 | Outpatient (BNVA) | payer MEDICARE, OTHER, SELFPAY | PROVIDERS: PCP Family Medicine; Visit Provider Family Medicine | DX: M48.062 Spinal stenosis, lumbar region with neurogenic claudication (principal); M54.9 Dorsalgia, unspecified; G89.29 Other chronic pain; Z79.891 Long term (current) use of opiate analgesic | CPT/HCPCS: 80307 ==

== ENCOUNTER → 2022-06-14 09:49 | Outpatient (BNVA) | payer MEDICARE, OTHER, SELFPAY | PROVIDERS: PCP Family Medicine; Visit Provider Urology | DX: R79.89 Other specified abnormal findings of blood chemistry (principal) | CPT/HCPCS: 99213 ==

== ENCOUNTER → 2022-07-04 08:50 | Outpatient (BNVA) | payer MEDICARE, OTHER, SELFPAY | PROVIDERS: PCP Family Medicine; Visit Provider Specialist | DX: M65.332 Trigger finger, left middle finger (principal); M65.331 Trigger finger, right middle finger; G56.02 Carpal tunnel syndrome, left upper limb | CPT/HCPCS: 73110; 99213 ==

== ENCOUNTER → 2022-07-05 09:18 | Outpatient (BNVA) | payer MEDICARE, OTHER, SELFPAY | PROVIDERS: PCP Family Medicine; Visit Provider Orthopaedic Surgery | DX: R20.0 Anesthesia of skin (principal); Z98.1 Arthrodesis status | CPT/HCPCS: 72100; 99213 ==

== ENCOUNTER 2022-08-09 07:34 | Outpatient (CLI) | payer MEDICARE, OTHER, SELFPAY ==
--- NOTE | 2022-08-09 08:00 | MR_ITS ---
WS: [id number] MRI LEFT WRIST without CONTRAST. COMPARISON: LEFT wrist radiograph 07/04/2022 Multiplanar, multisequence imaging is performed without contrast. Median nerve is normal caliber and signal proximal to the carpal tunnel. As the median nerve enters t he carpal tunnel becomes of mildly increased signal and thickened. There is also some very mild nato ening of the nerve. No fluid along the sheath. Very slight bowing of the flexor retinaculum adjacent to the median nerve. Prominent adjacent low signal is probably fibrosis and may be scarring associate d with the surgery. No definite crowding within the carpal tunnel. The ulnar nerve is normal caliber and signal. No muscle atrophy. Numerous small subchondral cystic changes within the carpal bones. No fluid in the distal radial ulnar joint. Mild degenerative changes in the TFCC. Scapholunate ligament intact. MR/MR wrist LT wo con* [id number] IMPRESSION: 1. Mild median nerve enlargement proximal to the carpal tunnel. Findings consi stent with carpal tunnel syndrome. 2. Mild bulging of the flexor retinaculum adjacent to the median nerve with a small area of fibrosis. Suspect postsurgical scar tissue.
== END 2022-08-09 07:35 | disposition home or self-care (01) ==
LOC: RAD 07:34
PROVIDERS: PCP Family Medicine; Visit Provider Specialist
DX: M25.532 Pain in left wrist (principal); R20.0 Anesthesia of skin; R20.2 Paresthesia of skin
CPT/HCPCS: 73221

== ENCOUNTER → 2022-08-10 07:43 | Outpatient (BNVA) | payer MEDICARE, OTHER, SELFPAY | PROVIDERS: PCP Family Medicine; Referring Provider Specialist; Visit Provider Specialist | DX: G56.02 Carpal tunnel syndrome, left upper limb (principal) | CPT/HCPCS: 95908; 95909 ==

== ENCOUNTER → 2022-08-22 10:18 | Outpatient (BNVA) | payer MEDICARE, OTHER, SELFPAY | PROVIDERS: PCP Family Medicine; Visit Provider Family Medicine | DX: M48.062 Spinal stenosis, lumbar region with neurogenic claudication (principal); M54.9 Dorsalgia, unspecified; G89.29 Other chronic pain; Z79.891 Long term (current) use of opiate analgesic | CPT/HCPCS: 80307 ==

== ENCOUNTER → 2022-08-24 10:09 | Outpatient (BNVA) | payer MEDICARE, OTHER, SELFPAY | PROVIDERS: PCP Family Medicine; Visit Provider Specialist | DX: G56.02 Carpal tunnel syndrome, left upper limb (principal) | CPT/HCPCS: 99214 ==

== ENCOUNTER → 2022-10-28 08:49 | Outpatient (BNVA) | payer MEDICARE, OTHER, SELFPAY | PROVIDERS: PCP Family Medicine; Visit Provider Urology | DX: R79.89 Other specified abnormal findings of blood chemistry (principal) | CPT/HCPCS: 84403 ==

== ENCOUNTER → 2022-11-09 09:45 | Outpatient (BNVA) | payer MEDICARE, OTHER, SELFPAY | PROVIDERS: PCP Family Medicine; Visit Provider Specialist | DX: M65.331 Trigger finger, right middle finger (principal) | CPT/HCPCS: 73130; 99214 ==

== ENCOUNTER 2022-11-25 07:56 | Day surgery (SDC) | payer MEDICARE, OTHER, SELFPAY ==
[2022-11-24 12:06] VITALS: BMI 27.0
--- NOTE | 2022-11-25 08:10 | P.HPUD_ITS ---
Surgery/Procedure H&P Update DATE OF PROCEDURE: November 25, 2022 DATE H&P PERFORMED: 11/09/22 H&P UPDATE INFORMATION: I have reviewed H&P completed within last 30 days, I have examined patient prior to procedure, No changes to prior documentation and H&P is in [facility] EMR on date indicated PREOP DIAGNOSIS: Right long trigger finger PLANNED PROCEDURE: Operation Date: 11/25/22 09:30 Proposed Procedures p RIGHT LONG FINGER TRIGGER FINGER RELEASE [id number],M65.30(Right) - Vera Perdomo MD Related Problem List Diagnoses (1) Trigger finger, right middle finger:
[2022-11-25 08:12] VITALS: BP 161/103; PULSE 81; RESP 18; TEMP 36.3; O2SAT 95
[2022-11-25] MEDS: acetaminophen 1,000 MG/100 ML PIGGYBACK 400 MG IV (08:28)
[2022-11-25] MEDS: CELEcoxib 200 mg Capsule 400 MG PO (08:30)
[2022-11-25] MEDS: sodium chloride 0.9% 1,000 ML 30 ML IV (08:30)
[2022-11-25] MEDS: ceFAZolin 2,000 MG in sodium chloride 0.9% (plus) 50 ML 100 MG IV (08:38)
--- NOTE | 2022-11-25 08:53 | P.ANESASSM_ITS ---
Pre-Anesthetic Assessment Height/Weight: Height 1.85 m Weight 92.986 kg Temp Pulse Resp BP Pulse Ox O2 Del Method 97.3 F L 81 18 161/103 95 11/25/22 08:12 11/25/22 08:12 11/25/22 08:12 11/25/22 08:12 11/25/22 08:12 11/25/22 08:15 Preop Diagnosis: Right long trigger finger Operation Date: 11/25/22 09:30 Proposed Procedures p RIGHT LONG FINGER TRIGGER FINGER RELEASE 94675,M65.30(Right) - Vera Perdomo MD Familial anesthetic complications: none Was Beta Allyson taken within 24 hours: Yes Was Clonidine taken within 24 hours: N/A Last intake: Intake Last Liquid Date 11/24/22 Last Liquid Time 23:00 Last Solid Date 11/24/22 Last Solid Time 20:00 Social No alcohol and No tobacco Exam alert, oriented x 3, clear to auscultation bilaterally and regular rate & rhythm Airway Submandibular: within normal limits Cervical ROM: within normal limits Mallampati: Class III Dentition: full CV/HEM Hypertension GI Gastroesophageal Reflux Disease Metabolic Hyperlipidemia [facility] [place] Lower Back Pain and Osteoarthritis/DJD Neuropsych Anxiety and Depression Anesthetic Plan ASA status: 3 Anesthesia: Choice Medications/Allergies Home Medications Medication Instructions Recorded Confirmed Last Taken Type aspirin 81 mg tablet,delayed 81 mg PO DAILY 11/23/20 11/24/22 11/23/22 History release (Adult Aspirin Regimen) cetirizine 5 mg tablet 5 mg PO DAILY PRN Allergic Symptoms 11/23/20 11/24/22 12/31/21 History cholecalciferol (vitamin D3) 125 125 mcg PO DAILY 06/02/21 11/24/22 11/23/22 History mcg (5,000 unit) capsule Bone Growth Stimulator E0748 #1 ea 12/31/21 11/09/22 Unknown Rx buspirone 10 mg tablet 10 mg PO TID PRN anxiety #60 tabs 05/23/22 11/24/22 Unknown Rx mirtazapine 15 mg tablet 15 mg PO DAILY 90 days #90 tabs 08/19/22 11/24/22 11/23/22 Rx allopurinol 100 mg tablet 100 mg PO DAILY #90 tabs 08/22/22 11/24/22 11/24/22 Rx amlodipine 5 mg tablet 5 mg PO DAILY #90 tabs 08/22/22 11/24/22 11/25/22 Rx hydrocodone 7.5 mg-acetaminophen 1 tab PO TID 30 days #90 tabs 08/22/22 11/24/22 11/23/22 Rx 325 mg tablet testosterone cypionate 200 mg/mL 200 mg IM .Q. O. Week #10 mL 09/29/22 11/24/22 11/18/22 Rx intramuscular oil (Depo-Testosterone) duloxetine 60 mg capsule,delayed 60 mg PO DAILY 90 days #90 caps 11/03/22 11/24/22 11/23/22 Rx release meloxicam 15 mg tablet 15 mg PO DAILY #90 tabs 11/03/22 11/24/22 11/23/22 Rx metoprolol succinate 50 mg 50 mg PO BEDTIME 90 days #90 tabs 11/03/22 11/24/22 11/23/22 Rx tablet,extended release 24 hr syringe with needle 3 mL 22 gauge #100 ea 11/08/22 11/09/22 Unknown Rx x 1 (Syringe) syringe with needle 3 mL 22 gauge #100 ea 11/14/22 Unknown Rx x 1 (Syringe) omeprazole 20 mg capsule,delayed 20 mg PO BID 11/24/22 11/24/22 11/23/22 History release rosuvastatin 10 mg tablet 10 mg PO DAILY 11/24/22 11/24/22 11/23/22 History Allergies Allergy/AdvReac Type Severity Reaction Status Date / Time No Known Allergies Allergy Verified 11/09/22 09:55 [facility] Anesthesia Medical History Benign essential hypertension Chronic pain Dyslipidemia GERD (gastroesophageal reflux disease) Hyperuricemia Hypogonadism Nasal and sinus discharge Sternomastoid muscle strain Surgical History H/O cardiac catheterization H/O endoscopy H/O foot surgery H/O rotator cuff surgery History of back surgery Family History Mother Glaucoma Father , AT AGE 78 Heart disease Hypertension Social History Smoking and tobacco status: former smoker Alcohol intake: never Marital status: Current occupational status: retired History of recent travel: No Data Anesthesia Cardiac Studies: No Data to Display
[2022-11-25 09:34] VITALS: BP 126/101; PULSE 94; RESP 18; TEMP 36.1; O2SAT 99
[2022-11-25 09:39] VITALS: BP 141/98; PULSE 91; RESP 18; O2SAT 98
--- NOTE | 2022-11-25 09:39 | P.OP_ITS ---
Operative Report Date of procedure: November 25, 2022 Pre-op diagnosis: Right long trigger finger Post-op diagnosis: Right long trigger finger Procedure done: Release long trigger finger Specimens removed/disposition: None Pathology: none sent Surgeon: Vera Perdomo Profile Stitching Machine Operator: None Anesthesia: General (Per LMA, ASA 3) Estimated blood loss (mL): 1 Tourniquet time (min): 9 (At 250 mmHg) IV fluids (mL): 500 Urine output (mL): 0 (No Gamez) Complications: None Condition: stable Disposition: PACU (Then return to same-day surgery for discharge to home) Brief History: Luis Prieto is an established 67 year old male patient who presented to the office regarding pain in his right long finger.? Patient states it has bothered him for around 6 months, and he notes at times it triggers, but mostly, it is painful.? Patient rates pain at 3/10 in clinic today. Patient is actively taking Meloxicam 15mg daily.? Previously, he had a trigger finger release on the opposite hand, and he notes that this pain is similar. Procedure: Patient was brought to the operating theater. He was placed on the operating room table. Patient was administered a general anesthetic per LMA, ASA 3, uneventfully. Patient tolerated it well. Ancef 2 g was given as a prophylactic preoperative antibiotic. A tourniquet was placed high on the arm and was elevated following exsanguination and adequate anesthesia. Tourniquet time was 9 minutes at 250 mmHg. Surgical pause was performed prior to commencement of the surgical procedure. At the time of the surgical pause we identified the site and side of surgery. We also identified the patient's identity and appropriate administration of IV antibiotics. Following the surgical pause, an incision was made along the distal palmar crease beneath the long finger. Dissection continued through the skin to the subcutaneous tissues using a scalpel. Blunt dissection was then utilized to spread soft tissues and allow access to the A1 fran which was identified and subsequently incised longitudinally and sharply using a scalpel. This was accomplished without difficulty and atraumatically. Once the A1 fran was released, tendons were brought up out of the wound and evaluated. There were no gross masses on the tendons or evidence of chronic irritation. Tendons were returned to normal position. We then irrigated the wound and subsequently closed it with 3-0 nylon with an interrupted mattress type suture. Following closure of the wound, the wound was injected with bupivacaine plain into the subcutaneous tissues as a local anesthetic. Sterile dressing was then placed consisting of Dermabond, OpSite, fluffed fluffs, sterile soft roll, and an Clemente wrap. The patient was returned to recovery in satisfactory condition. He will be discharged home to follow-up with me in the office. There were no complications and no specimens. Related Problem List Diagnoses (1) Trigger finger, right middle finger:
[2022-11-25 09:44] VITALS: BP 132/99; PULSE 90; RESP 18; O2SAT 96
[2022-11-25 09:49] VITALS: BP 119/91; PULSE 87; RESP 18; O2SAT 93
[2022-11-25 09:53] VITALS: BP 126/85; PULSE 88; RESP 17; TEMP 36.3; O2SAT 95
[2022-11-25] MEDS: HYDROcodone-acetaminophen 5-325 mg Tablet 1 TAB PO (10:21)
--- NOTE | 2022-11-25 14:16 | ANE.PACU2 ---
Inpatient post-anesthesia follow up: Airway intact: Yes Vital signs: Temperature 97.4 F Pulse Rate 88 Respiratory Rate 17 Blood Pressure 126/85 Pulse Oximetry 95 Oxygen Delivery Me thod Room Air Oxygen Flow Rate 6 Fraction of Inspir ed Oxygen Hydration adequate: Yes Nausea and vomiting: No Pain level: 2 Mental status: Baseline
== END 2022-11-25 10:43 | disposition home or self-care (01) ==
PROVIDERS: PCP Family Medicine; Visit Provider Specialist
PROC: (CPT 26055; principal; 2022-11-25 09:20)
DX: M65.331 Trigger finger, right middle finger (principal); I10 Essential (primary) hypertension; K21.9 Gastro-esophageal reflux disease without esophagitis; Z79.82 Long term (current) use of aspirin; E78.5 Hyperlipidemia, unspecified; Z87.891 Personal history of nicotine dependence
CPT/HCPCS: 26055; J0131; J0690; J1100; J2250; J2405; J2704; J3010; J3490; J7030

== ENCOUNTER → 2022-12-09 10:00 | Outpatient (BNVA) | payer MEDICARE, OTHER, SELFPAY | PROVIDERS: PCP Family Medicine; Visit Provider Nurse Practitioner Family | DX: Z47.89 Encounter for other orthopedic aftercare (principal) | CPT/HCPCS: 99024; 99212 ==

== ENCOUNTER → 2022-12-20 09:13 | Outpatient (BNVA) | payer MEDICARE, OTHER, SELFPAY | PROVIDERS: PCP Family Medicine; Visit Provider Urology | DX: R79.89 Other specified abnormal findings of blood chemistry (principal) | CPT/HCPCS: 81003; 99213 ==

== ENCOUNTER → 2022-12-26 08:08 | Outpatient (BNVA) | payer MEDICARE, OTHER, SELFPAY | PROVIDERS: PCP Family Medicine; Visit Provider Family Medicine | DX: I10 Essential (primary) hypertension (principal); E78.5 Hyperlipidemia, unspecified; M79.644 Pain in right finger(s); Z83.49 Family history of other endocrine, nutritional and metabolic diseases | CPT/HCPCS: 80053; 80061; 82043; 82728; 83550; 85025 ==

== ENCOUNTER → 2023-01-31 09:54 | Outpatient (BNVA) | payer MEDICARE, OTHER, SELFPAY | PROVIDERS: PCP Family Medicine; Visit Provider Surgery | DX: K21.9 Gastro-esophageal reflux disease without esophagitis (principal); Z12.11 Encounter for screening for malignant neoplasm of colon | CPT/HCPCS: 99203 ==

== ENCOUNTER → 2023-02-09 08:14 | Outpatient (BNVA) | payer MEDICARE, OTHER, SELFPAY | PROVIDERS: PCP Family Medicine; Visit Provider Physician Assistant | DX: Z98.1 Arthrodesis status (principal) | CPT/HCPCS: 72100; 99213 ==

== ENCOUNTER 2023-02-15 08:22 | Day surgery (SDC) | payer MEDICARE, OTHER, SELFPAY ==
[2023-02-13 14:42] VITALS: BMI 27.0
[2023-02-15 08:35] VITALS: BP 129/101; PULSE 103; RESP 18; TEMP 36.1; O2SAT 96
[2023-02-15] MEDS: sodium chloride 0.9% 1,000 ML 30 ML IV (08:55)
--- NOTE | 2023-02-15 10:12 | W.PM.OPSUD ---
Surgery/Procedure H&P Update DATE OF PROCEDURE: February 15, 2023 DATE H&P PERFORMED: 01/31/23 H&P UPDATE INFORMATION: I have reviewed H&P completed within last 30 days, I have examined patient prior to procedure and No changes to prior documentation PLANNED PROCEDURE: Operation Date: 02/15/23 09:45 Proposed Procedures p [id number] egd [id number] colon K21.9,Z12.11(Not Applicable) - DO faustino Maher Colonoscopy(Not Applicable) - Ferny Nunez DO
[2023-02-15 10:42] VITALS: BP 140/93; PULSE 77; RESP 16; TEMP 36.1; O2SAT 93
[2023-02-15 10:51] VITALS: BP 151/90; PULSE 71; RESP 16; O2SAT 94
[2023-02-15 11:00] VITALS: BP 148/112; PULSE 71; RESP 18; O2SAT 95
--- NOTE | 2023-02-15 17:39 | ANES.PREANE2 ---
Pre-Anesthetic Assessment Height/Weight: Height 1.85 m Weight 92.986 kg Temp Pulse Resp BP Pulse Ox O2 Del Method O2 Flow Rate 97.0 F L 71 18 148/112 95 Room Air 3 02/15/23 10:42 02/15/23 11:00 02/15/23 11:00 02/15/23 11:00 02/15/23 11:00 02/15/23 11:00 02/15/23 10:51 Operation Date: 02/15/23 09:45 Proposed Procedures p [id number] egd [id number] colon K21.9,Z12.11(Not Applicable) - Ferny Nunez DO s Colonoscopy(Not Applicable) - Ferny Nunez DO Familial anesthetic complications: none Was Beta Allyson taken within 24 hours: Yes Was Clonidine taken within 24 hours: N/A Last intake: Intake Last Liquid Date 02/14/23 Last Liquid Time 22:00 Last Solid Date 02/13/23 Last Solid Time 21:00 Social No alcohol and No tobacco Exam alert, oriented x 3, clear to auscultation bilaterally and regular rate & rhythm Airway Submandibular: within normal limits Cervical ROM: within normal limits Mallampati: Class II Dentition: full CV/HEM Hypertension GI Gastroesophageal Reflux Disease Metabolic Morbid Obesity Musc/skel Lower Back Pain and Osteoarthritis/DJD Neuropsych Anxiety Anesthetic Plan ASA status: 3 Anesthesia: MAC Medications/Allergies Home Medications Medication Instructions Recorded Confirmed Last Taken Type aspirin 81 mg tablet,delayed 81 mg PO DAILY 11/23/20 02/15/23 02/14/23 History release (Adult Aspirin Regimen) cholecalciferol (vitamin D3) 125 125 mcg PO DAILY 06/02/21 02/15/23 02/14/23 History mcg (5,000 unit) capsule Bone Growth Stimulator E0748 #1 ea 12/31/21 02/09/23 Unknown Rx buspirone 10 mg tablet 10 mg PO TID PRN anxiety #60 tabs 05/23/22 02/15/23 02/14/23 Rx mirtazapine 15 mg tablet 15 mg PO DAILY 90 days #90 tabs 08/19/22 02/15/23 02/14/23 Rx allopurinol 100 mg tablet 100 mg PO DAILY #90 tabs 08/22/22 02/15/23 02/14/23 Rx amlodipine 5 mg tablet 5 mg PO DAILY #90 tabs 08/22/22 02/15/23 02/15/23 Rx syringe with needle 3 mL 22 gauge #100 ea 11/08/22 02/09/23 Unknown Rx x 1 (Syringe) syringe with needle 3 mL 22 gauge #100 ea 11/14/22 02/09/23 Unknown Rx x 1 (Syringe) hydrocodone 7.5 mg-acetaminophen 1 tab PO TID PRN pain 30 days #90 12/16/22 02/15/23 02/15/23 Rx 325 mg tablet tabs testosterone cypionate 200 mg/mL 120 mg (0.6 mL) IM .Q. O. Week #10 12/20/22 02/13/23 02/10/23 Rx intramuscular oil mL (Depo-Testosterone) rosuvastatin 10 mg tablet 10 mg PO DAILY #90 tabs 02/01/23 02/15/23 02/14/23 Rx duloxetine 60 mg capsule,delayed 60 mg PO DAILY 90 days #90 caps 02/13/23 02/15/23 02/14/23 Rx release meloxicam 15 mg tablet 15 mg PO DAILY 02/13/23 02/15/23 02/14/23 History metoprolol succinate 50 mg 50 mg PO BEDTIME 90 days #90 tabs 02/14/23 02/15/23 02/14/23 Rx tablet,extended release 24 hr pantoprazole 40 mg tablet,delayed 40 mg PO BID 6 weeks #84 tabs 02/15/23 Unknown Rx release (Protonix) Allergies Allergy/AdvReac Type Severity Reaction Status Date / Time No Known Allergies Allergy Verified 02/09/23 08:21 [facility] Anesthesia Medical History Benign essential hypertension Chronic pain Dyslipidemia GERD (gastroesophageal reflux disease) Hyperuricemia Hypogonadism Nasal and sinus discharge Sternomastoid muscle strain Surgical History H/O cardiac catheterization H/O endoscopy H/O foot surgery H/O rotator cuff surgery History of back surgery Hx of colonoscopy with polypectomy Hx of neck surgery Family History Mother , AGE 103 Glaucoma Father , AT AGE 78 Heart disease Hypertension Social History Smoking and tobacco status: former smoker Alcohol intake: never Marital status: Current occupational status: retired Data Anesthesia Cardiac Studies: No Data to Display
--- NOTE | 2023-02-15 17:41 | ANE.PACU2 ---
Inpatient post-anesthesia follow up: Airway intact: Yes Vital signs: Temperature 97.0 F Pulse Rate 71 Respiratory Rate 18 Blood Pressure 148/112 Pulse Oximetry 95 Oxygen Delivery Me thod Room Air Oxygen Flow Rate 3 Fraction of Inspir ed Oxygen Hydration adequate: Yes Nausea and vomiting: No Pain level: 2 Mental status: Baseline
== END 2023-02-15 11:28 | disposition home or self-care (01) ==
PROVIDERS: PCP Family Medicine; Visit Provider Surgery
PROC: 0DJ08ZZ Inspection of Upper Intestinal Tract, Via Natural or Artificial Opening Endoscopic (ICD-10-PCS; CPT 43235; principal; 2023-02-15 09:45)
PROC: 0DJD8ZZ Inspection of Lower Intestinal Tract, Via Natural or Artificial Opening Endoscopic (ICD-10-PCS; CPT 45378; 2023-02-15 09:45)
DX: K21.9 Gastro-esophageal reflux disease without esophagitis (principal); Z86.010 Personal history of colon polyps; Z12.11 Encounter for screening for malignant neoplasm of colon; I10 Essential (primary) hypertension; F41.9 Anxiety disorder, unspecified; Z79.82 Long term (current) use of aspirin; Z87.891 Personal history of nicotine dependence
CPT/HCPCS: 43239; 88305; G0121; J2704; J7030

== ENCOUNTER 2023-02-22 08:16 | Outpatient (CLI) | payer MEDICARE, OTHER, SELFPAY ==
--- NOTE | 2023-02-22 08:30 | CT_ITS ---
WS: [id number] CT LUMBAR SPINE, noncontrast. HISTORY: continued lower back pain, prior lumbar spine surgery in December 2021. Increasing pain. TECHNIQUE: Contiguous 2.0 mm axial imaging are performed. Sagittal and coronal reformats are submitte d and reviewed. All CT scans at [facility] use at least one of these dose optimization techni ques: automated exposure control; mA and/or kV adjustment per patient size (includes targeted exams w here dose is matched to clinical indication); or iterative reconstruction. IV contrast: None DLP: 1109.95 mGy.cm COMPARISON: Radiograph 02/09/2023 and 07/05/2022 Status post posterior lumbosacral fusion from L3 to S2. Sacral screws extend through the SI joints. M arked lucency surrounding the pedicle screws at L3 most likely indicating loosening. No hardware frac ture is identified. Marked disc space narrowing at L4-5 and L5-S1. L5 anterolisthesis by 7 mm. No acu te lumbar spine fracture. Small corner fracture involving the posterior superior endplate of L3. Vashti ins are well corticated. This is probably not an acute fracture but new since 11/23/2021. Also does no t appear to be present on the radiographs of 02/22/2022. L1-2: Normal. L2-3: Moderate annular disc bulging with encroachment upon the ventral thecal sac. Ligamentum flavum and facet arthritis. Moderate central with bilateral subarticular recess and mild foraminal stenosis. L3-4: Moderate diffuse annular disc bulge encroaches upon the ventral thecal sac. Large posterior moon inectomy defect. L4-5: Osteophytic ridging with a RIGHT paracentral and proximal foraminal disc protrusion. Posterior laminectomy defect. Moderate LEFT and mild RIGHT foraminal stenosis. L5-S1: Osteophytic ridging with annular disc bulging. Central disc protrusion extends slightly greate r into the LEFT subarticular recess. Posterior laminectomy defect. Moderate bilateral foraminal steno sis. Sacral fusion screws extending across the SI joints in good position. Symmetry of the SI joints. CT/CT lumbar spine wo con* [id number] IMPRESSION: 1. Status post posterior lumbar sacral fusion from L3 through S2 with screws e xtending through the SI joints. 2. Marked lucency surrounding the L3 pedicle screws indicating loosening. 3. Small corner avulsion fracture from the superior posterior endplate of L3. 4. Large posterior laminectomy defects from L3 through S1. 5. Moderate LEFT and mild RIGHT foraminal stenosis at L4-5 with a RIGHT parace ntral and proximal foraminal disc protrusion. 6. Central disc protrusion L5-S1 encroaches into the LEFT subarticular recess. Correlate for LEFT S1 nerve root symptoms. Moderate bilateral foraminal stenos is at L5-S1. 7. Moderate central with bilateral subarticular recess and mild foraminal sten osis at L2-3. Progression since the prior MRI of 11/23/2021. 8. Grade 1 anterolisthesis of L5.
== END 2023-02-22 08:17 | disposition home or self-care (01) ==
PROVIDERS: PCP Family Medicine; Visit Provider Orthopaedic Surgery
DX: M48.061 Spinal stenosis, lumbar region without neurogenic claudication (principal); M51.26 Other intervertebral disc displacement, lumbar region; M47.816 Spondylosis without myelopathy or radiculopathy, lumbar region; Z98.1 Arthrodesis status
CPT/HCPCS: 72131; 99213

== ENCOUNTER → 2023-02-24 10:23 | Outpatient (BNVA) | payer MEDICARE, OTHER, SELFPAY | PROVIDERS: PCP Family Medicine; Visit Provider Family Medicine | DX: D50.9 Iron deficiency anemia, unspecified (principal) | CPT/HCPCS: 82728; 83550; 85025 ==

== ENCOUNTER → 2023-03-02 15:26 | Outpatient (BNVA) | payer MEDICARE, OTHER, SELFPAY | PROVIDERS: PCP Family Medicine; Visit Provider Orthopaedic Surgery | DX: T84.216A Breakdown (mechanical) of internal fixation device of vertebrae, initial encounter (principal); W19.XXXA Unspecified fall, initial encounter; Z98.1 Arthrodesis status; Y79.8 Miscellaneous orthopedic devices associated with adverse incidents, not elsewhere classified | CPT/HCPCS: 99214 ==

== ENCOUNTER → 2023-03-03 16:12 | Outpatient (BNVA) | payer MEDICARE, OTHER, SELFPAY | PROVIDERS: PCP Family Medicine; Visit Provider Surgery | DX: Z09 Encounter for follow-up examination after completed treatment for conditions other than malignant neoplasm (principal) | CPT/HCPCS: 99024; 99212 ==

== ENCOUNTER 2023-03-15 07:01 | Outpatient (CLI) | payer MEDICARE, OTHER, SELFPAY | END 2023-03-15 07:02 | disposition home or self-care (01) | LOC: RT 03-17 07:13 | PROVIDERS: PCP Family Medicine; Visit Provider Orthopaedic Surgery | DX: I44.0 Atrioventricular block, first degree (principal) | CPT/HCPCS: 93005 ==

== ENCOUNTER → 2023-03-16 10:39 | Outpatient (BNVA) | payer MEDICARE, OTHER, SELFPAY | PROVIDERS: PCP Family Medicine; Visit Provider Clinical Nurse Specialist Adult Health | DX: Z01.818 Encounter for other preprocedural examination (principal) | CPT/HCPCS: 80048; 85025 ==

== ENCOUNTER 2023-03-22 17:49 | Inpatient (IN) | payer MEDICARE, OTHER, SELFPAY ==
[2023-03-15 09:45] VITALS: BMI 26.4
--- NOTE | 2023-03-15 10:00 | P.ANESASSM_ITS ---
Pre-Anesthetic Assessment Height/Weight: Height 1.85 m Weight 90.718 kg Operation Date: 03/22/23 14:05 Proposed Procedures p L1-L4 fusion revision: 62672,37506 x 3 ,06528,75635,93945,22 842,Z98.1,M54.50(Not Applicable) - Víctor Colon DO Familial anesthetic complications: None Was Beta Allyson taken within 24 hours: N/A Was Clonidine taken within 24 hours: N/A Last intake: > 8hrs Social No alcohol and No tobacco Exam alert, oriented x 3, clear to auscultation bilaterally and regular rate & rhythm Airway Mallampati: Class II Dentition: full CV/HEM Anemia and Hypertension GI Gastroesophageal Reflux Disease Metabolic Hyperlipidemia Anesthetic Plan ASA status: 3 Anesthesia: General Risk of > 500 ml blood loss (7ml/kg in children): Yes, adequate IV access and fluids planned Medications/Allergies Home Medications Medication Instructions Recorded Confirmed Last Taken Type aspirin 81 mg tablet,delayed 81 mg PO DAILY 11/23/20 03/15/23 03/13/23 History release (Adult Aspirin Regimen) cholecalciferol (vitamin D3) 125 125 mcg PO DAILY 06/02/21 03/15/23 03/09/23 History mcg (5,000 unit) capsule Bone Growth Stimulator E0748 #1 ea 12/31/21 03/03/23 Unknown Rx buspirone 10 mg tablet 10 mg PO TID PRN anxiety #60 tabs 05/23/22 03/15/23 02/14/23 Rx allopurinol 100 mg tablet 100 mg PO DAILY #90 tabs 08/22/22 03/15/23 03/14/23 Rx amlodipine 5 mg tablet 5 mg PO DAILY #90 tabs 08/22/22 03/15/23 03/14/23 Rx syringe with needle 3 mL 22 gauge #100 ea 11/08/22 03/03/23 Unknown Rx x 1 (Syringe) syringe with needle 3 mL 22 gauge #100 ea 11/14/22 03/03/23 Unknown Rx x 1 (Syringe) testosterone cypionate 200 mg/mL 120 mg (0.6 mL) IM .Q. O. Week #10 12/20/22 03/15/23 03/04/23 Rx intramuscular oil mL (Depo-Testosterone) rosuvastatin 10 mg tablet 10 mg PO DAILY #90 tabs 02/01/23 03/15/23 03/14/23 Rx duloxetine 60 mg capsule,delayed 60 mg PO DAILY 90 days #90 caps 02/13/23 03/15/23 03/14/23 Rx release meloxicam 15 mg tablet 15 mg PO DAILY 02/13/23 03/15/23 03/13/23 History metoprolol succinate 50 mg 50 mg PO BEDTIME 90 days #90 tabs 02/14/23 03/15/23 03/14/23 Rx tablet,extended release 24 hr hydrocodone 10 mg-acetaminophen 1 tab PO Q6H PRN pain 30 days #120 02/24/23 03/15/23 03/15/23 Rx 325 mg tablet tabs mirtazapine 15 mg tablet 15 mg PO DAILY 90 days #90 tabs 02/27/23 03/15/23 03/14/23 Rx pantoprazole 40 mg tablet,delayed 40 mg PO BID 6 months #360 tabs 03/03/23 03/15/23 03/15/23 Rx release (Protonix) Allergies Allergy/AdvReac Type Severity Reaction Status Date / Time No Known Allergies Allergy Verified 03/15/23 09:39 PFSH Anesthesia Medical History Benign essential hypertension Chronic pain Dyslipidemia GERD (gastroesophageal reflux disease) Hyperuricemia Hypogonadism Nasal and sinus discharge Sternomastoid muscle strain Surgical History H/O cardiac catheterization H/O endoscopy H/O foot surgery H/O rotator cuff surgery History of back surgery Hx of colonoscopy with polypectomy Hx of neck surgery Family History Mother , AGE 103 Glaucoma Father , AT AGE 78 Heart disease Hypertension Social History Smoking and tobacco status: former smoker Alcohol intake: never Marital status: Current occupational status: retired Data Anesthesia Cardiac Studies: No Data to Display
--- NOTE | 2023-03-15 10:07 | ECG_ITS ---
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 Measurements Intervals Elmer Rate: 73 P: 33 TN: 224 QRS: 65 QRSD: 139 T: 29 QT: 365 QTc: 403 Interpretive Statements SINUS RHYTHM WITH FIRST DEGREE AV BLOCK RIGHT BUNDLE BRANCH BLOCK [120+ ms QRS DURATION, UPRIGHT V1, 40+ ms S IN I/aVL/V4/V5/V6] Compared to ECG 12/23/2021 09:30:55 First degree AV block now present Electronically Signed On 03-15-2023 12:30:34 CDT by Kash Aguila M.D. [email or web address]
[2023-03-22] VITALS (32 sets, daily range): BP systolic 112–175; BP diastolic 53–120; PULSE 76–90; RESP 12–22; TEMP 36.2–36.8; O2SAT 90–98
--- NOTE | 2023-03-22 | XR_ITS ---
WS: [id number] XR lumbar spine 2-3V* [id number] REASON FOR EXAM: OR Pic. Revision L1 to pelvis FINDINGS: Previous posterior fusion was reviewed findings with removal of pedicle screws from the L3 vertebral body and placement of pedicle screws at L1 and L2 with connecting rods to the S2-L4 4 screws. Surgical appliances are intact and in proper position and alignment. XR/XR lumbar spine 2-3V* [id number] IMPRESSION: Revision of posterior fusion as above.
--- NOTE | 2023-03-22 12:17 | W.PM.OPSUD ---
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
[2023-03-22] MEDS: sodium chloride 0.9% 1,000 ML 30 ML IV (12:32)
[2023-03-22] MEDS: HYDROmorphone 1 mg/mL INJ 1 mL 0.5 MG IVP ×3 (12:47→16:09)
[2023-03-22] MEDS: ceFAZolin 2,000 MG in sodium chloride 0.9% (plus) 50 ML 100 MG IV ×2 (13:14→21:19)
[2023-03-22] MEDS: vancomycin 1,000 MG SDV 1000 MG XX (13:38)
[2023-03-22] MEDS: lidocaine-epi 2% 20 mL INJ INJECTION (13:38)
--- NOTE | 2023-03-22 14:00 | P.ANESUD_ITS ---
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 Proposed Procedure: Operation Date: 03/22/23 13:45 Proposed Procedures p L1-L4 fusion revision: ,53912 x 3 ,66056,68022,64678,72609,Z98.1,M54.50(Not Applicable) - Víctor Colon, DO Any changes to Pre-Anesthetic Assessment?: No Last Intake: Intake Last Liquid Date 03/21/23 Last Liquid Time 21:00 Last Solid Date 03/21/23 Last Solid Time 21:00 Vitals: Temperature 97.2 F L 03/22/23 12:26 Temperature Source Temporal Artery S can 03/22/23 12:26 Pulse Rate 76 03/22/23 12:26 Respiratory Rate 16 03/22/23 12:47 Respiratory Effort Spontaneous 03/22/23 12:47 Respiratory Depth Normal 03/22/23 12:47 Respiratory Patter n Normal 03/22/23 12:47 Blood Pressure 163/120 03/22/23 12:26 Blood Pressure Phuong n 134 03/22/23 12:26 Pulse Oximetry 97 03/22/23 12:47 Oxygen Delivery Me thod Room Air 03/22/23 12:26 Exam: Pre-Anes Outpt Exam: alert, oriented x 3, clear to auscultation bilaterally and regular rate & rhythm Cardiac Studies: No Data to Display
--- NOTE | 2023-03-22 15:13 | P.OP_ITS ---
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 L1- L4 Posterior spine fusion 2. L1-L4 instrumentation 3. Bone marrow aspirate from Right iliac crest 4. Removal deep hardware from spine 5. use of allograft Surgeon: Víctor Colon Plug Wirer: David Gorman Plug Wirer: The surgical technology instructor, David Gorman, PAC was needed for his expertise with spine surgery. He was important and necessary throughout the procedure to complete in a safe and timely manner. He assisted with patient positioning prepping and draping tissue retraction suctioning of the operative field protection of the critical structures and tissue closure Estimated blood loss (mL): 500 Procedure: 1. L1- L4 Posterior spine fusion 2. L1-L4 instrumentation 3. Bone marrow aspirate from Right iliac crest 4. Removal deep hardware from spine 5. use of allograft Patient brought the op suite after undergoing anesthesia was placed in the prone position. All areas appear well-padded. Patient was prepped draped no sterile fashion. Skin incision was made over the L1-L4 level. Subperiosteal dissection was made down to the spinous process out to the facets and out to the transverse processes of L1 bilaterally, L2 bilaterally, the L3 and L4 screws connected to the treasure were identified. Once the rods were exposed the transverse processes and bone fusion mass L3-4 were identified. The caps from L3 and L4 were then removed bilaterally. Once is completed then the treasure was pulled out of the tulip of the L3 screw and the L3 screws were actually pulled out there and so loose once the screw was removed bilaterally next attention was brought to placing the pedicle screws. This was done by using C arm the drill was used to open the pedicle the gearshift probe was then passed the pedicle feeler was then used and then the screw was placed. This was done at L2 bilaterally and L1 bilaterally. Once the screws were placed then attention was brought to the left side where 2 connectors were placed onto the treasure and then locked in position. And then a treasure was placed from the pedicle screws into the connectors just above the L4 pedicle screw. The caps were then placed in L1-L2 and then to the treasure connectors on both the treasure coming inferiorly and the treasure coming superiorly for a total of 4 caps to connect these rods. The rods and caps were all torqued in position. The L4 Was then replaced. And torqued into position. This process was then repeated on the right side however there was only one room for 1 connector on the right side. This was all torqued into position. AP and lateral fluoroscopy ensure that the L1-L4 connection was in good position. Wounds were irrigated. And then the lamina and transverse processes were decorticated and the ostial amp bone graft was packed along the lamina and gutters. Connecting the L1-L4 to apply the fusion mass. Vancomycin powder was placed deep drain was placed and wound was closed in layered fashion with 0 Vicryl 2-0 Vicryl and Monocryl suture. Sterile dressings were applied.
[2023-03-22] MEDS: hyDRALAzine 20 mg/mL INJ 1 mL 10 MG IVP (15:21)
[2023-03-22] MEDS: metoprolol tartrate 1 mg/1 mL SDV 5 mL 5 MG IVP (15:21)
[2023-03-22] MEDS: fentaNYL 50 mcg/mL INJ 2mL IVP (15:39)
--- NOTE | 2023-03-22 17:18 | ANE.PACU2 ---
Inpatient post-anesthesia follow up: Airway intact: Yes Vital signs: Temperature 97.6 F Pulse Rate 79 Respiratory Rate 18 Blood Pressure 136/82 Pulse Oximetry 90 Oxygen Delivery Me thod Room Air Oxygen Flow Rate 6 Fraction of Inspir ed Oxygen Hydration adequate: Yes Nausea and vomiting: No Pain level: 4 Mental status: Baseline
[2023-03-22] MEDS: sodium chloride 0.9% 1,000 ML 100 ML IV (18:32)
[2023-03-22] MEDS: docusate sodium 100 mg Capsule PO (18:36)
[2023-03-22] MEDS: pantoprazole DR 40 mg Tablet PO (18:36)
[2023-03-22] MEDS: morphine 4 mg/mL SDV 1 mL 2 MG IVP ×2 (18:37→19:46)
[2023-03-22] MEDS: lactated ringers 1,000 ML 90 ML IV (18:37)
[2023-03-22] MEDS: ondansetron 2 mg/ML SDV 2 mL 4 MG IVP (19:46)
[2023-03-22] MEDS: alum-mag-hydroxide-sime 30 mL UDC PO (21:17)
[2023-03-22] MEDS: mirtazapine 15 mg Tablet PO (21:18)
[2023-03-22] MEDS: oxyCODONE 20 mg ER (12 HR) Tablet PO (21:19)
[2023-03-22] MEDS: metoprolol succinate ER (24 HR) 50 mg Tablet PO (21:19)
[2023-03-23] VITALS (9 sets, daily range): BP systolic 147–165; BP diastolic 83–95; PULSE 92–103; RESP 17–20; TEMP 36.6–37.2; O2SAT 91–94
[2023-03-23] MEDS: ondansetron 2 mg/ML SDV 2 mL 4 MG IVP ×2 (01:46→09:53)
[2023-03-23] MEDS: HYDROcodone-acetaminophen 10-325 mg Tablet PO ×4 (02:02→22:13)
[2023-03-23] MEDS: BuSPIRONE 10 mg Tablet PO (02:55)
[2023-03-23] MEDS: ceFAZolin 2,000 MG in sodium chloride 0.9% (plus) 50 ML 100 MG IV ×2 (04:48→13:56)
[2023-03-23] MEDS: lactated ringers 1,000 ML 90 ML IV (04:49)
[2023-03-23] MEDS: LORazepam 2 mg/mL INJ 1 mL 0.5 MG IVP (06:56)
[2023-03-23] MEDS: promethazine 25 mg/mL SDV 1 mL IM ×2 (06:56→14:13)
--- NOTE | 2023-03-23 07:02 | PM.PN ---
Subjective Subjective: POD 1 Patient having problems with nausea and vomiting. Reports of back pain. Vitals/I&O/Wt Last Vital Signs Temp 98.3 F 03/23/23 05:00 Pulse 93 03/23/23 05:00 Resp 20 H 03/23/23 05:00 BP 162/95 03/23/23 05:00 Pulse Ox 92 03/23/23 05:00 O2 Del Method Room Air 03/23/23 00:26 O2 Flow Rate 6 03/22/23 15:10 03/22/23 03/23/23 03/23/23 22:59 06:59 14:59 Intake Total 362.5 / 412.5 1158 / 1570.5 Output Total 650 / 650 300 / 950 Balance -287.5 / -237.5 858 / 620.5 Physical Exam Narrative: Patient presents alert and oriented x3 with a good general appearance normal mood and affect. Normal coordination normal stability. Mild tenderness around the incisional site with the incision appear to be healing nicely. No signs of erythema or drainage. No signs of infection. Patient denies any fevers or chills. 4/5 motor strength both lower extremities with negative straight leg raise bilaterally. Calves are supple no medial thigh tenderness. Pulses are 2+ at the dorsalis pedis and posterior tibial region. Good capillary refill throughout normal sensation light touch both lower extremities. A&P Assessment and plan (1) Status post lumbar spinal fusion: DC Hemovac drain. Try Phenergan for nausea. Patient is very anxious having spasms we will try Ativan 0.5 mg IV to see if that will help calm his anxiety. Have physical therapy work with mobilization. Incentive spirometer for pulmonary toilet. We will work to gain better control of his nausea. Probable discharge home tomorrow. Attestations Medical Necessity Statement*: DC home tomorrow Coding Level of Care Code Acute Code for Chg Fwd Diagnoses Status post lumbar spinal fusion Z98.1
[2023-03-23] MEDS: atorvastatin 40 mg Tablet 20 MG PO (09:48)
[2023-03-23] MEDS: amlodipine 5 mg Tablet PO (09:48)
[2023-03-23] MEDS: duloxetine 60 mg Capsule PO (09:48)
[2023-03-23] MEDS: docusate sodium 100 mg Capsule PO ×2 (09:48→20:08)
[2023-03-23] MEDS: pantoprazole DR 40 mg Tablet PO ×2 (09:48→20:08)
[2023-03-23] MEDS: aspirin 81 mg EC Tablet PO (09:48)
[2023-03-23] MEDS: cholecalciferol (vitamin D3) 5,000 unit Tablet 5000 UNIT PO (09:48)
[2023-03-23] MEDS: ketorolac 30 mg/mL INJ IVP (09:53)
--- NOTE | 2023-03-23 10:08 | PC.CHAP ---
Pastoral Care Encounter/Spiritual Assessment Type of Contact [] Declined minister visit [] Patient/Family/Request visit [] Outpatient visit [] Follow-up visit [] Physician referral [] Code/Alert [x] Routine visit [] Staff referral [] Actively dying [] Patient sleeping [] Family support [] [] Out of room [] Palliative care [] [x] Receiving care in room [] Pre-surgical visit [] Trauma [] Long length of stay [] ICU visit [] Other: Relational/Emotional Strength [x] Patient feels connected with others/family/visitors/staff [] Distress [] Loneliness/isolation [] Abandonment Spirituality of Patient [x] Person of Madelyn [] Attends Anabaptist of their Madelyn [x] Believes in Prayer [] Reads Bible or Confucianism materials [] There are Spiritual issues to be addressed Nuclear Cardiology Technologist Interventions [x] Prayer [x] Active listening [x] Non-anxious presence [x] Spiritual/emotional support [] Crisis/trauma care [x] Spiritual counseling [] Bereavement support [] Provided bereavement packet [] Provided Bible/devotional materials [] Provided toy/stuffed animal, coloring book to patient or family member [] Provided Communion [] Anointing/[place] [] Salvation [x] Completed spiritual assessment [] Other: Impact on Illness or Injury [] Angry [] Fearful [] Anxious [] Often cries [] Exhaustion [] Unable to work [] Unable to attend rastafarian [] Unable to walk/stand [] Unable to read [] Unable to drive [] Unable to eat/drink [] Unable to sleep [] Unable to be with family [] Patient intubated [] Other: Summary had back surgery well need some rehab in some pain has a good attitude well go home Time spent with patient 10 mlns
[2023-03-23] MEDS: oxyCODONE 20 mg ER (12 HR) Tablet PO (20:08)
[2023-03-23] MEDS: mirtazapine 15 mg Tablet PO (20:08)
[2023-03-23] MEDS: metoprolol succinate ER (24 HR) 50 mg Tablet PO (20:08)
[2023-03-24] VITALS: BP 148/84; PULSE 76; RESP 18; TEMP 36.7; O2SAT 92
[2023-03-24] MEDS: HYDROcodone-acetaminophen 10-325 mg Tablet PO ×3 (02:09→12:36)
[2023-03-24 03:39] VITALS: BP 151/88; PULSE 92; RESP 17; TEMP 36.6; O2SAT 89
[2023-03-24] MEDS: lactated ringers 1,000 ML 90 ML IV (06:13)
--- NOTE | 2023-03-24 07:03 | P.DS_ITS ---
Discharge Providers Date of Admission: 03/22/23 17:49 Date of Discharge: March 24, 2023 Attending Provider at Admission: Víctor Colon DO Attending Provider at Discharge: Víctor Colon DO Primary Care Provider: Thania Carbajal DO Diagnoses at Discharge Discharge Diagnosis (1) Status post lumbar spinal fusion: Status: Acute Hospital Course Hospital Course nausea for a day Physical Exam Narrative: Nause and pain controlled this am Discharge Data Studies Completed and Pending Completed Studies During Hospitalization Category Date Time Status XR lumbar spine 2-3V* [id number] Routine Exams 03/22/23 Completed Radiology Impressions Lumbar Spine X-Ray 03/22/23 00:00 IMPRESSION: Revision of posterior fusion as above. Vitals Last Vital Signs Temp 97.9 F 03/24/23 03:39 Pulse 92 03/24/23 03:39 Resp 17 03/24/23 03:39 BP 151/88 03/24/23 03:39 Pulse Ox 89 L 03/24/23 03:39 O2 Del Method Room Air 03/24/23 03:39 O2 Flow Rate 6 03/22/23 15:10 Discharge Plan Discharge Patient Disposition: Home Condition: Stable Prescriptions: New (DME) Bone Growth Stimulator E0748 See Rx Instructions .Route .MEDSUPPLY Qty: 1 0RF Rx Instructions: As directed hydrocodone-acetaminophen 10-325 mg tablet 1 - 2 tab PO Q4H PRN (Reason: pain) 7 Days Qty: 40 0RF Continued aspirin [Adult Aspirin Regimen] 81 mg tablet,delayed release (DR/EC) 81 mg PO DAILY cholecalciferol (vitamin D3) 125 mcg (5,000 unit) capsule 125 mcg PO DAILY buspirone 10 mg tablet 10 mg PO TID PRN (Reason: anxiety) Qty: 60 0RF testosterone cypionate [Depo-Testosterone] 200 mg/mL oil 120 mg IM .Q. O. Week Qty: 10 5RF Protonix 40 mg tablet,delayed release (DR/EC) 40 mg PO BID 180 Days Qty: 360 0RF allopurinol 100 mg tablet 100 mg PO DAILY Qty: 90 1RF (DME) Syringe 3cc/22Gx1 3 mL 22 gauge x 1 syringe miscellaneous Qty: 100 0RF Rx Instructions: Syringe w/needle: 3ml 22 guage x 1 (DME) Syringe 3cc/22Gx1 3 mL 22 gauge x 1 syringe miscellaneous Qty: 100 0RF Rx Instructions: 3 mL, 22-gauge x1 inch rosuvastatin 10 mg tablet 10 mg PO DAILY Qty: 90 1RF Rx Instructions: TAKE 1 TABLET BY MOUTH DAILY duloxetine 60 mg capsule,delayed release(DR/EC) 60 mg PO DAILY 90 Days Qty: 90 0RF metoprolol succinate 50 mg tablet extended release 24 hr 50 mg PO BEDTIME 90 Days Qty: 90 0RF hydrocodone-acetaminophen 10-325 mg tablet 1 tab PO Q6H PRN (Reason: pain) 30 Days Qty: 120 0RF Rx Instructions: Do not fill until 02/28/2023 mirtazapine 15 mg tablet 15 mg PO DAILY 90 Days Qty: 90 1RF (DME) intraoperative neurophysiological testing See Rx Instructions .Route .MEDSUPPLY Qty: 1 0RF Rx Instructions: As directed amlodipine 5 mg tablet 5 mg PO DAILY Qty: 90 1RF meloxicam 15 mg tablet 15 mg PO DAILY Rx Instructions: TAKE ONE TABLET BY MOUTH DAILY Discharge Orders: Discharge Order (Routine); Ordered 03/24/23 Ordered By: Víctor Colon Discharge Diet: Advance as tolerated Discharge Activity: Limit activity as instructed Patient Instructions: Opioid Safety Activity Restrictions/Additional Instructions: Thank you for choosing [facility] for your care! The following is a list of instructions, from your provider, to follow upon your discharge to ensure you have the optimal recovery from your recent injury or surgery. Follow-up care is a hwang part of your treatment and safety. Be sure to make and go to all appointments and call your doctor if you are having problems. If you do not already have a follow-up appointment made, call Dr. Colon's] office in the next 1-3 days to make follow up appointment for [address] Colon at [phone]. It is also a good idea to know your test results and keep a list of the medicines you take. Medications will be prescribed for you at your provider's discretion. These medications are to be used as instructed; if they are taken more often that prescribed they will not be refilled early and in most cases will not be refilled at all. > When a refill is needed, you should contact barbi metzger 2-3 business days before your prescription runs out. Medications will NOT be refilled by environmental studies professor providers after hours! > Many pain medications contain Tylenol (Acetaminophen). Do not consume more than 4,000 mg of Tylenol per day in total with any combination of medications. > Pain medications can cause constipation. Please use an over the counter stool softener as directed, while taking pain medications. Consult your local pharmacist with questions or recommendations on stool softeners. If constipation persists, contact our office or your primary care provider. > While under our care, you are not to receive pain medications or other controlled substances from any other provider unless our office is notified and approves. Any attempts to do so will result in refusal to prescribe any further pain medications and possible dismissal from our practice. ? Walking is essential for the healing process after surgery. We would like you to slowly advance your walking. This should be done on relatively flat clear ground (inside or out) or can be done on a treadmill. Remember this goal does not have to happen all at once, slowly increase your distance and duration. This can be broken into more more than one walk per day as tolerated. Patients who walk as directed after surgery rarely require Physical Therapy. In the unlikely event this issue arises your provider will direct hospital staff to make the appropriate arrangements. ? No lifting over 5 pounds {a gallon of milk) or bending/twisting until further notice. Each of these activities places an unnecessary amount of stress onto the body and can impede the delicate healing process. > Instead of bending at the waist, keep your back straight and bend at the knees. > Instead of twisting your torso, keep your back straight and turn your entire body with your feet. ? You may sleep in any position which makes you comfortable. Many patients find comfort sleeping in a reclining chair. It is not abnormal to have difficulty sleeping for the first several weeks following your surgery. We recommend trying Benadry! or Tylenol PM as directed to help with your sleeping difficulties. Both medications are over the counter and available without prescription. ? NO SMOKING!!! Smoking dramatically increases the probability of developing postoperative wound infections. ? Common complaints after lumbar and/or thoracic spine surgery include, but are not limited to: numbness and/or tingling in the legs, pain around the incision and surrounding tissues, muscle spasms, or stiffness of the middle to low back. Contact our office if these symptoms persist or if an acute change occurs. ? No driving for the first 3-5days, and not while taking narcotics until seen at your follow-up appointment and cleared. There are no restrictions for riding on short trips, however if you take a longer trip, arrangements should be made to make regular stops to get out of the vehicle and stretch . ? Swelling is an unfortunate event that will take place with any surgery and is the primary source of your postoperative discomfort. While walking and regular approved activities helps control inflammation, there are additional steps you can take to minimize swelling. > Place ice over the surgical site and surrounding tissue for twenty minutes, followed by applying a low/medium heat (heating pad) for an additional twenty minutes every 1-2 hours as needed for painrelief. > You may use of over the counter anti-inflammatory medications (Ibuprofen, Motrin, Aleve, Advil, etc) as directed on the package label. These types of medicines will significantly reduce the amount of discomfort you experience after surgery from swelling. It should be noted that if you have and allergy to any of these medications, or a history of ulcers or kidney disease you should consult you primary care provider prior to starting these medications. Discharge Attestations Time Spent in Discharge Care*: less than 30 min Quality Metrics Clinical Quality Measures [ No reported AMI, CVA or VTE this stay] Coding Level of Care Code Acute Code for Chg Fwd Diagnoses Status post lumbar spinal fusion Z98.1
[2023-03-24 08:16] VITALS: BP 145/95; PULSE 93; RESP 16; TEMP 36.8; O2SAT 95
[2023-03-24 08:47] VITALS: RESP 16
[2023-03-24] MEDS: allopurinol 100 mg Tablet PO (08:47)
[2023-03-24] MEDS: aspirin 81 mg EC Tablet PO (08:47)
[2023-03-24] MEDS: amlodipine 5 mg Tablet PO (08:47)
[2023-03-24] MEDS: docusate sodium 100 mg Capsule PO (08:47)
[2023-03-24] MEDS: duloxetine 60 mg Capsule PO (08:47)
[2023-03-24] MEDS: pantoprazole DR 40 mg Tablet PO (08:47)
[2023-03-24] MEDS: oxyCODONE 20 mg ER (12 HR) Tablet PO (08:47)
[2023-03-24] MEDS: atorvastatin 40 mg Tablet 20 MG PO (08:47)
[2023-03-24] MEDS: cholecalciferol (vitamin D3) 5,000 unit Tablet 5000 UNIT PO (08:49)
[2023-03-24 12:54] VITALS: RESP 16
== END 2023-03-24 12:55 | disposition home or self-care (01) | DRG 460 ==
LOC: MEDSURG 17:54
PROVIDERS: Admitting Provider Orthopaedic Surgery; PCP Family Medicine; Visit Provider Orthopaedic Surgery
PROC: 0SG107J Fusion of 2 or more Lumbar Vertebral Joints with Autologous Tissue Substitute, Posterior Approach, Anterior Column, Open Approach (ICD-10-PCS; principal; 2023-03-22 13:35)
DX: T84.226A Displacement of internal fixation device of vertebrae, initial encounter (principal); Y79.8 Miscellaneous orthopedic devices associated with adverse incidents, not elsewhere classified; I10 Essential (primary) hypertension; G89.29 Other chronic pain; E78.5 Hyperlipidemia, unspecified; K21.9 Gastro-esophageal reflux disease without esophagitis; Z87.891 Personal history of nicotine dependence; F41.9 Anxiety disorder, unspecified; M62.830 Muscle spasm of back; Z79.891 Long term (current) use of opiate analgesic; Z79.82 Long term (current) use of aspirin
CPT/HCPCS: 72100; 76000; 96372; 97110; 97116; 97161; 97530; C1713; C9359; J0360; J0690; J1100; J1170; J1644; J1885; J2060; J2270; J2405; J2550; J2704; J2710; J3010; J3370; J3490; J7030; J7120; P9045

== ENCOUNTER → 2023-03-30 14:47 | Outpatient (BNVA) | payer MEDICARE, OTHER, SELFPAY | PROVIDERS: PCP Family Medicine; Visit Provider Orthopaedic Surgery | DX: Z98.890 Other specified postprocedural states (principal) | CPT/HCPCS: 99024 ==

== ENCOUNTER → 2023-04-06 13:07 | Outpatient (BNVA) | payer MEDICARE, OTHER, SELFPAY | PROVIDERS: PCP Family Medicine; Visit Provider Physician Assistant | DX: Z98.1 Arthrodesis status (principal) | CPT/HCPCS: 72100; 99024 ==

== ENCOUNTER → 2023-05-16 09:54 | Outpatient (BNVA) | payer MEDICARE, OTHER, SELFPAY | PROVIDERS: PCP Family Medicine; Visit Provider Orthopaedic Surgery | DX: Z47.89 Encounter for other orthopedic aftercare; Z98.1 Arthrodesis status | CPT/HCPCS: 72100; 99024 ==

== ENCOUNTER → 2023-06-13 08:41 | Outpatient (BNVA) | payer MEDICARE, OTHER, SELFPAY | PROVIDERS: PCP Family Medicine; Visit Provider Orthopaedic Surgery | DX: Z47.89 Encounter for other orthopedic aftercare (principal); Z98.1 Arthrodesis status | CPT/HCPCS: 72100; 99024 ==

== ENCOUNTER → 2023-06-29 08:10 | Outpatient (BNVA) | payer MEDICARE, OTHER, SELFPAY | PROVIDERS: PCP Family Medicine; Visit Provider Family Medicine | DX: R79.89 Other specified abnormal findings of blood chemistry (principal); D50.8 Other iron deficiency anemias; D50.9 Iron deficiency anemia, unspecified | CPT/HCPCS: 82728; 83550; 84403; 85025 ==

== ENCOUNTER → 2023-08-28 10:59 | Outpatient (BNVA) | payer MEDICARE, OTHER, SELFPAY | PROVIDERS: PCP Family Medicine; Visit Provider Family Medicine | DX: M54.9 Dorsalgia, unspecified (principal); G89.29 Other chronic pain; E03.8 Other specified hypothyroidism | CPT/HCPCS: 84439; 84443 ==

== ENCOUNTER → 2023-09-05 10:33 | Outpatient (BNVA) | payer MEDICARE, OTHER, SELFPAY | PROVIDERS: PCP Family Medicine; Visit Provider Podiatrist Foot & Ankle Surgery | DX: M96.0 Pseudarthrosis after fusion or arthrodesis; M20.22 Hallux rigidus, left foot | CPT/HCPCS: 73630; 99203 ==

== ENCOUNTER → 2023-09-12 08:37 | Outpatient (BNVA) | payer MEDICARE, OTHER, SELFPAY | PROVIDERS: PCP Family Medicine; Visit Provider Orthopaedic Surgery | DX: Z98.1 Arthrodesis status; Z47.89 Encounter for other orthopedic aftercare; M54.50 Low back pain, unspecified | CPT/HCPCS: 72100; 99213 ==

== ENCOUNTER 2023-09-13 07:37 | Outpatient (CLI) | payer MEDICARE, OTHER, SELFPAY ==
--- NOTE | 2023-09-13 08:00 | CT_ITS ---
WS: [id number] CT LEFT FOOT, NONCONTRAST. HISTORY: Left foot nonunion Technique: All CT scans at [facility] use at least one of these dose optimization techniques: automated exposure control; mA and/or kV adjustment per patient size (includes targeted exams where dose is matched to clinical indication); or iterative reconstruction. DLP: 139.83 mGy.cm COMPARISON: LEFT foot radiograph 09/05/2023 Patient is status post remote tarsal metatarsal arthrodesis. There is significant artifact from the hardware through the midfoot. Arthrodesis screws at the first tarsometatarsal joint are fractured. These fractures are better seen radiographically. Additional art hrodesis through the second and third tarsometatarsal joints. There is bony fragmentation and osteoph ytosis. Arthrodesis does not appear to be complete. There is an additional artificial joint at the fi rst tarsometatarsal joint. The joint space is markedly narrowed with subsidence. There is no acute fracture. IMPRESSION: 1. Arthrodesis at the first, second and third tarsometatarsal articulations. Hardware in the first ar throdesis is fractured. 2. Suspect there may be nonunion across the arthrodesis sites but there is too much artifact to confi rm complete nonunion. 3. Artificial joint at the first metatarsophalangeal joint. Suspect subsidence of the joint replaceme nt. There is bone upon bone at the joint space.
== END 2023-09-13 07:38 | disposition home or self-care (01) ==
LOC: RAD 07:37
PROVIDERS: PCP Family Medicine; Visit Provider Podiatrist Foot & Ankle Surgery
DX: M96.0 Pseudarthrosis after fusion or arthrodesis (principal); Y83.8 Other surgical procedures as the cause of abnormal reaction of the patient, or of later complication, without mention of misadventure at the time of the procedure; T84.89XA Other specified complication of internal orthopedic prosthetic devices, implants and grafts, initial encounter; Y82.8 Other medical devices associated with adverse incidents; M20.22 Hallux rigidus, left foot; Z98.1 Arthrodesis status
CPT/HCPCS: 73700

== ENCOUNTER → 2023-09-19 10:41 | Outpatient (BNVA) | payer MEDICARE, OTHER, SELFPAY | PROVIDERS: PCP Family Medicine; Visit Provider Podiatrist Foot & Ankle Surgery | DX: M20.22 Hallux rigidus, left foot; M96.0 Pseudarthrosis after fusion or arthrodesis | CPT/HCPCS: 99213 ==

== ENCOUNTER → 2023-09-28 14:55 | Outpatient (BNVA) | payer MEDICARE, OTHER, SELFPAY | PROVIDERS: PCP Family Medicine; Visit Provider Family Medicine | DX: Z13.6 Encounter for screening for cardiovascular disorders (principal); Z01.818 Encounter for other preprocedural examination; M79.675 Pain in left toe(s); G89.29 Other chronic pain | CPT/HCPCS: 80053; 85025; 93005 ==

== ENCOUNTER → 2023-10-12 08:21 | Outpatient (BNVA) | payer MEDICARE, OTHER, SELFPAY | PROVIDERS: PCP Family Medicine; Visit Provider Podiatrist Foot & Ankle Surgery | DX: M20.22 Hallux rigidus, left foot; M96.0 Pseudarthrosis after fusion or arthrodesis; M24.572 Contracture, left ankle; M20.42 Other hammer toe(s) (acquired), left foot; M77.42 Metatarsalgia, left foot | CPT/HCPCS: 99214 ==

== ENCOUNTER 2023-10-25 05:41 | Day surgery (SDC) | payer MEDICARE, OTHER, SELFPAY ==
[2023-10-25] VITALS (13 sets, daily range): BP systolic 103–145; BP diastolic 81–99; PULSE 71–80; RESP 10–20; TEMP 35.8–36.5; O2SAT 92–98; BMI 26.4
--- NOTE | 2023-10-25 | XR_ITS ---
WS: [id number] INTRAOPERATIVE TECHNIQUE: 2 Spot fluoroscopic images for intraoperative purposes. FLUOROSCOPY TIME: 3 minutes 44 seconds DLP: 4.184 mgy/cm CLINICAL INFORMATION: [facility] COMPARISON: 09/05/2023 FINDINGS: Intraoperative changes bunionectomy with plate and screw fixation across the first MTP. Prior postope rative changes fusion of the first through third TMT joints. IMPRESSION: Images obtained for intraoperative purposes.
[2023-10-25] MEDS: acetaminophen 1,000 MG/100 ML PIGGYBACK 400 MG IV (06:20)
[2023-10-25] MEDS: sodium chloride 0.9% 1,000 ML 30 ML IV (06:21)
[2023-10-25] MEDS: gabapentin 300 mg Capsule PO (06:21)
--- NOTE | 2023-10-25 06:34 | ANES.PREANE2 ---
Pre-Anesthetic Assessment Height/Weight: Height 1.85 m Weight 90.718 kg Temp Pulse Resp BP Pulse Ox O2 Del Method 96.4 F L 80 17 117/91 98 Room Air 10/25/23 06:07 10/25/23 06:07 10/25/23 06:07 10/25/23 06:07 10/25/23 06:07 10/25/23 06:09 Preop Diagnosis: Failed orthopedic hardware Operation Date: 10/25/23 07:00 Proposed Procedures p Hardware Removal Left Foot 1st metatarsophalangeal,2nd and 3rd tasometatarsal(Left) - BELINDA Haley Arthrodesis Foot Proximal Interphalangeal Joint Arthrodesis(left second digit)(Left) - BELINDA Haley Tendon Transfer Foot Flexor Digitorum Longus To Extensor Digitorum Longus Tendon Transfer(left foot second digit)(Left) - BELINDA Haley Left foot second Metatarsal Rigoberto Osteotomy(Left) - BELINDA Haley Left Leg Gastrocnemius Recession(Left) - Charli Okeefe DPM Familial anesthetic complications: None Was Beta Allyson taken within 24 hours: Yes Was Clonidine taken within 24 hours: N/A Last intake: Intake Last Liquid Date 10/24/23 Last Liquid Time 20:00 Last Solid Date 10/24/23 Last Solid Time 20:00 Social No alcohol and No tobacco Exam alert, oriented x 3, clear to auscultation bilaterally and regular rate & rhythm Airway Mallampati: Class III Dentition: full CV/HEM Hypertension GI Gastroesophageal Reflux Disease Anesthetic Plan ASA status: 2 Anesthesia: General and Regional (specify below) Risk of > 500 ml blood loss (7ml/kg in children): No Medications/Allergies Home Medications Medication Instructions Recorded Confirmed Last Taken Type aspirin 81 mg tablet,delayed 81 mg PO DAILY 11/23/20 10/24/23 10/17/23 History release (Adult Aspirin Regimen) cholecalciferol (vitamin D3) 125 125 mcg PO DAILY 06/02/21 10/24/23 10/23/23 History mcg (5,000 unit) capsule amlodipine 5 mg tablet 5 mg PO DAILY #90 tabs 08/22/22 10/24/23 10/23/23 Rx syringe with needle 3 mL 22 gauge #100 ea 11/08/22 10/12/23 Unknown Rx x 1 (Syringe) syringe with needle 3 mL 22 gauge #100 ea 11/14/22 10/12/23 Unknown Rx x 1 (Syringe) Bone Growth Stimulator E0748 #1 ea 03/22/23 10/12/23 Unknown Rx duloxetine 60 mg capsule,delayed 60 mg PO DAILY 90 days #90 caps 08/11/23 10/24/23 10/23/23 Rx release meloxicam 15 mg tablet 15 mg PO DAILY #90 tabs 08/11/23 10/24/23 10/17/23 Rx metoprolol succinate 50 mg 50 mg PO BEDTIME 90 days #90 tabs 08/15/23 10/24/23 10/23/23 Rx tablet,extended release 24 hr hydrocodone 7.5 mg-acetaminophen 1 tab PO TID PRN pain 30 days #90 08/28/23 10/24/23 Unknown Rx 325 mg tablet tabs hydrocodone 7.5 mg-acetaminophen 1 tab PO TID PRN pain 30 days #90 08/28/23 10/24/23 10/23/23 Rx 325 mg tablet tabs pantoprazole 40 mg tablet,delayed 40 mg PO BID #180 tabs 09/22/23 10/25/23 10/25/23 Rx release Crutches #1 ea 10/12/23 Unknown Rx testosterone cypionate 200 mg/mL 120 mg (0.6 mL) IM .every 14 days 10/23/23 10/24/23 10/23/23 Rx intramuscular oil #2 mL (Depo-Testosterone) allopurinol 100 mg tablet 100 mg PO DAILY 10/24/23 10/24/23 10/23/23 History mirtazapine 15 mg tablet 15 mg PO QPM 10/24/23 10/24/23 10/23/23 History rosuvastatin 10 mg tablet 10 mg PO QPM 10/24/23 10/24/23 10/23/23 History hydrocodone 10 mg-acetaminophen 1 tab PO Q6H PRN pain #28 tabs 10/25/23 Unknown Rx 325 mg tablet Allergies Allergy/AdvReac Type Severity Reaction Status Date / Time morphine Allergy ADR-Vomitin Verified 10/24/23 10:49 g Current Medications Generic Name Dose Route Start Last Admin Trade Name Freq PRN Reason Stop Dose Admin Sodium Chloride 1,000 mls @ 30 mls/hr 10/25/23 06:00 10/25/23 06:21 Sodium Chloride 0.9% IV 10/26/23 05:59 30 mls/hr .Q24H VENESSA Administration PFSH Anesthesia Medical History Dyslipidemia Nasal and sinus discharge Sternomastoid muscle strain GERD (gastroesophageal reflux disease) Benign essential hypertension Hyperuricemia Chronic pain Hypogonadism Surgical History Hx of inguinal hernia surgery Hx of neck surgery Hx of colonoscopy with polypectomy H/O cardiac catheterization these were negative H/O endoscopy History of back surgery H/O foot surgery H/O rotator cuff surgery Family History Mother , AGE 103 Glaucoma Father , AT AGE 78 Heart disease Hypertension Social History Smoking and tobacco/nicotine status: former use of tobacco/nicotine Alcohol intake: never Marital status: Current occupational status: retired Data Anesthesia Cardiac Studies: No Data to Display
--- NOTE | 2023-10-25 06:46 | W.PM.OPSUD ---
Surgery/Procedure H&P Update DATE OF PROCEDURE: October 25, 2023 DATE H&P PERFORMED: 10/12/23 H&P UPDATE INFORMATION: I have reviewed H&P completed within last 30 days, I have examined patient prior to procedure, No changes to prior documentation and [place] is [place] [facility] date indicated PREOP DIAGNOSIS: Failed orthopedic hardware PLANNED PROCEDURE: Operation Date: 10/25/23 07:00 Proposed Procedures p Hardware Removal Left Foot 1st metatarsophalangeal,2nd and 3rd tasometatarsal(Left) - BELINDA Haley Arthrodesis Foot Proximal Interphalangeal Joint Arthrodesis(left second digit)(Left) - BELINDA Haley Tendon Transfer Foot Flexor Digitorum Longus To Extensor Digitorum Longus Tendon Transfer(left foot second digit)(Left) - BELINDA Haley Left foot second Metatarsal Rigoberto Osteotomy(Left) - BELINDA Haley Left Leg Gastrocnemius Recession(Left) - Charli Okeefe DPM
--- NOTE | 2023-10-25 07:06 | ANES.PROC ---
Anesthesia Procedures Procedure/Date: 10/25/23 Nerve Block ^: Nerve Block 1: Main Anesthesia: general anesthesia Time Out Performed: Yes Consent: requested by attending/covering physician, from patient, risks and benefits reviewed and patient agrees to proceed Nerve block location: popliteal (L) Anesthesia monitors applied: pulse oximetry, EKG, BP cuff and oxygen Nerve block position: supine Anesthetic Used: ropivicaine 0.5% (30 ml) and with decadron (4 mg) Ultrasound used to: recognize landmarks Nerve Stimulator Used?: No Interscalene/Femoral BLK: 4 stimuplex 21 g needle used for position and inplane approach, visualize local anesthetic spread and no vascular puncture identified Injection: neg aspiration of heme Patient Tolerated Procedure: well Complications: none
[2023-10-25] MEDS: ceFAZolin 2,000 MG in sodium chloride 0.9% (plus) 50 ML 100 MG IV (07:11)
[2023-10-25] MEDS: BUPivacaine 0.5% INJ 30 mL INJECTION (11:20)
--- NOTE | 2023-10-25 11:28 | P.BOP_ITS ---
Date of procedure: October 25, 2023 Surgeon name: Dr. Charli Okeefe D.P.M. [place] Neck Whipper(s) name(s): Jamey Angel Procedure(s) performed: Hardware removal left first metatarsophalangeal joint. Hardware removal left second and third tarsometatarsal joint. Revisional arthrodesis second and third tarsometatarsal joint. Bone block arthrodesis first metatarsophalangeal joint. Hammertoe repair left foot second digit with Rigoberto osteotomy and proximal interphalangeal joint arthrodesis with flexor to extensor tendon transfer Description of findings: Nonunion second and third tarsometatarsal joint. Failed first metatarsophalangeal joint implant, hammertoe second digit left foot Estimated blood loss: 40 cc Tourniquet time: 184 minutes. 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 Hammertoe left foot second digit
--- NOTE | 2023-10-25 12:03 | XR_ITS ---
WS: [id number] Exam: XR chest 1V portable [id number] Date/Time of Exam: 10/25/2023 12:03 PM Reason For Exam: post op shortness of breath Lungs are clear and fully inflated. Normal cardiomediastinal silhouette and regional bony elements. N o pleural effusions. Mild elevation of the RIGHT diaphragm. Anchoring screws in the RIGHT humeral hea d and acromion. Fusion hardware in the visualized lower C-spine. IMPRESSION: 1. No acute cardiopulmonary finding.
--- NOTE | 2023-10-25 12:04 | PC.NURSE ---
Denies pain and N/V at this time. C/O shortness of breath. Dr Wagner at bedside to assess patient, ordered cxr. VSS at this time.
--- NOTE | 2023-10-25 13:55 | ANE.PACU2 ---
Inpatient post-anesthesia follow up: Airway intact: Yes Vital signs: Temperature 97.5 F Pulse Rate 73 Respiratory Rate 18 Blood Pressure 128/83 Pulse Oximetry 94 Oxygen Delivery Me thod Room Air Oxygen Flow Rate 8 Fraction of Inspir ed Oxygen Hydration adequate: Yes Nausea and vomiting: No Pain level: 1 Mental status: Baseline
--- NOTE | 2023-10-25 18:00 | PM.OP ---
Operative Report Date of procedure: October 25, 2023 Pre-op diagnosis: 1. First metatarsophalangeal joint implant failure 2. 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 Failed orthopedic hardware left foot second and third tarsometatarsal joint 4. Left foot second digit hammertoe Post-op diagnosis: Same Procedure done: 1. Left foot first metatarsophalangeal joint hardware removal CPT 79171 2. Left foot first metatarsophalangeal joint arthrodesis CPT 18851 3. Left foot second and third tarsometatarsal joint hardware removal separate incision CPT 03036 4. Left foot second and third tarsometatarsal joint revision arthrodesis CPT 82358 5. Left foot second digit proximal interphalangeal joint arthrodesis CPT 08064 6. Left foot second digit flexor digitorum longus to extensor digitorum longus tendon transfer CPT 16947 7. Left foot second metatarsal Rigoberto osteotomy CPT 19369 Implants: Crushed cancellous bone, Allosync pure, first metatarsophalangeal joint arthrodesis plate, MX Violette x 2, 2.0 snap off screw, 0.045 k-wire all from [employer]. 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 The patient has had the aforementioned chief complaint for some time. Conservative treatment measures have been attempted and the patient has opted for surgical intervention at this time. A lengthy discussion regarding the procedure, including risks and complications has been had with the patient and is noted in the recent clinic note. Written and verbal consent have been obtained. All patient questions have been answered to the patient?s satisfaction. No written or verbal guarantees have been given or implied. The patient has been NPO since midnight. The history has been reviewed and the history and physical is current. The signed consent was confirmed and placed in the patient chart. Patient imaging has been reviewed and is consistent with the diagnosis. Under mild sedation, the patient was brought into the operating room and placed on the table in the supine position. IV antibiotics were given by the anesthesia team as preoperative surgical prophylaxis. General sedation was then performed by the anesthesiateam. A pneumatic tourniquet was then placed about the left thigh. The operative extremity was then prepped and draped in the usual fashion. The extremity was then elevated and exsanguinated before the tourniquet was inflated to 325 mmHg. After inflation, the following procedure was then performed. Attention was directed to the dorsum of the left midfoot where an 8 cm incision was made overlying the intermetatarsal space of the second and third metatarsals. Dissection was carried down through subcutaneous and superficial fascia. Care was taken to identify the neurovascular bundle and retracted out of the operative field. Dissection was carried down to the level of the second and third tarsometatarsal joint articulation. Hardware of the second and third tarsometatarsal joint was exposed using a combination of rongeur and dental pick. Synthes screws were then removed from the second and third tarsometatarsal joint articulation and passed from the operative field. An osteotome and curette was then used to prep the second and third tarsometatarsal joint before fenestration drill bit was used to fenestrate the articular site preparation for arthrodesis. After preparation of the joints, two MX violette from [employer] were inserted over the second and third tarsometatarsal joints per the manufacture protocol. Good compression across the arthrodesis site was visualized. Important to note that irrigation was performed prior to fenestration of the joints. Next, attention was directed to the left first metatarsophalangeal joint. A 6 cm incision was made overlying the first metatarsophalangeal joint. Dissection was carried down to the level of the first metatarsal phalangeal joint capsule which was incised to expose the underlying first metatarsophalangeal joint. There was noted to be extensive arthritic changes and degenerative changes of the distal first metatarsal head. Using a rongeur the failed first metatarsal head implant was removed from the operative field. The central portion of the first metatarsal head was then debrided of fibrotic tissue from within the first metatarsal head canal the base of the proximal phalanx was then denuded of articular cartilage in preparation for arthrodesis. The site was then irrigated with copious amounts of sterile saline. The base of the proximal phalanx was then fenestrated using a fenestration drill bit. The first metatarsal was then reamed in preparation for cancellous bone graft. Cancellous bone graft from [employer] was inserted into the first metatarsal canal. The excess was trimmed off using a sagittal bone saw and crushed up to be used for crushed cancellous. Next, the crushed cancellous was inserted into the first metatarsal phalangeal joint before a first metatarsal phalangeal joint arthrodesis plate was used to span the arthrodesis site. Good positioning of the plate was noted clinically as well as on C-arm imaging. The holes of the plate were drilled and filled per the manufacture protocol. Good positioning of the violette and plate and screws was visualized. Attention was then directed to the dorsal aspect of the left second digit. A 4 cm incision was made on the dorsum of the left second digit overlying the PIPJ. Dissection was carried down to the level of the extensor tendon which was transected transversely at the level of the joint. The medial and lateral collateral ligaments were transected to expose the head of the proximal phalanx which was removed using a sagittal bone saw. The articular cartilage from the base of the intermediate phalanx was then removed with a sagittal bone saw. Dissection was carried down through the plantar tissues to locate the flexor digitorum longus tendon. This was isolated and transected distally before being split longitudinally and wraparound to the dorsum of the second digit. The incision was then extended proximally over the second metatarsophalangeal joint. Dissection was carried down to the level of the second metatarsal head. A sagittal bone saw was then used to perform a Rigoberto osteotomy in standard fashion. After the osteotomy was performed the osteotomy site was fixated with a 2.0 snap off screw. A 0.045 K wire was then driven out the distal aspect of the second digit through the base of the intermediate phalanx before being driven in retrograde fashion back into the proximal phalanx and into the head of the second metatarsal. This wire would maintain position for arthrodesis of the second proximal interphalangeal joint. The flexor tendon was then repaired on the dorsal aspect of the proximal phalanx using 2-0 Ethibond. All incision sites were then irrigated with copious amounts of sterile saline before attention was directed to closure. Deep tissue including tendon repair was performed with 3-0 Vicryl followed by subcuticular closure with 4-0 Vicryl and skin closure with 4-0 nylon in horizontal mattress fashion. The tourniquet was let down and good hyperemic response noted to all digits of the left foot. Again, important to note that the tourniquet was let down for 20 minutes after the tourniquet had reached time of 120 minutes. The incisions were dressed with Xeroform, 4 x 4 gauze, Kerlix before Malorie ball was placed on the tip of the wire coming out of the second digit. The left lower extremity was then placed in a well-padded below the knee posterior splint. The patient tolerated the procedure and anesthesia well and without complication. The patient was transported from the operating room to the recovery room with vital signs stable and vascular status intact to all digits of the left foot. The patient was given both written and verbal instructions to remain nonweightbearing to the operative extremity, to keep dressings/splint clean, dry and intact and to take pain medication as directed. The patient will follow-up in the outpatient setting at their scheduled appointment. The patient was discharged with my personal number and was instructed to call if any questions or issues should arise. They were discharged home once anesthesia criteria was met.
== END 2023-10-25 13:57 | disposition home or self-care (01) ==
PROVIDERS: PCP Family Medicine; Visit Provider Podiatrist Foot & Ankle Surgery
PROC: (CPT 20680; principal; 2023-10-25 07:00)
PROC: (CPT 28740; 2023-10-25 07:00)
PROC: (CPT 20680; 2023-10-25 07:00)
PROC: (CPT 20680; 2023-10-25 07:00)
PROC: (CPT 27687; 2023-10-25 07:00)
DX: T85.698A Other mechanical complication of other specified internal prosthetic devices, implants and grafts, initial encounter (principal); S92.322A Displaced fracture of second metatarsal bone, left foot, initial encounter for closed fracture; S92.332A Displaced fracture of third metatarsal bone, left foot, initial encounter for closed fracture; X58.XXXA Exposure to other specified factors, initial encounter; M20.42 Other hammer toe(s) (acquired), left foot; I10 Essential (primary) hypertension; Z79.82 Long term (current) use of aspirin; E78.5 Hyperlipidemia, unspecified; K21.9 Gastro-esophageal reflux disease without esophagitis; Z87.891 Personal history of nicotine dependence
CPT/HCPCS: 20680; 27690; 28308; 28730; 28750; 71045; 73660; 76000; C1713 ×2; J0131; J0690; J1100; J2704; J2795; J3010; J3490; J7030

== ENCOUNTER 2023-11-08 06:00 | Outpatient (CLI) | payer MEDICARE, OTHER, SELFPAY | END 2023-11-08 23:59 | disposition home or self-care (01) | LOC: SPT 11-09 09:21 | PROVIDERS: PCP Family Medicine; Visit Provider Podiatrist Foot & Ankle Surgery | DX: Z46.89 Encounter for fitting and adjustment of other specified devices (principal); M79.672 Pain in left foot | CPT/HCPCS: 99024; L4361 ==

== ENCOUNTER → 2023-11-08 14:17 | Outpatient (BNVA) | payer MEDICARE, OTHER, SELFPAY | PROVIDERS: PCP Family Medicine; Visit Provider Podiatrist Foot & Ankle Surgery | DX: M20.22 Hallux rigidus, left foot; M96.0 Pseudarthrosis after fusion or arthrodesis; M24.572 Contracture, left ankle; M20.42 Other hammer toe(s) (acquired), left foot; M77.42 Metatarsalgia, left foot; Z46.89 Encounter for fitting and adjustment of other specified devices; M79.672 Pain in left foot | CPT/HCPCS: 73630; 99024; L4361 ==

== ENCOUNTER → 2023-11-22 13:02 | Outpatient (BNVA) | payer MEDICARE, OTHER, SELFPAY | PROVIDERS: PCP Family Medicine; Visit Provider Podiatrist Foot & Ankle Surgery | DX: Z98.890 Other specified postprocedural states; M20.22 Hallux rigidus, left foot; M96.0 Pseudarthrosis after fusion or arthrodesis; M24.572 Contracture, left ankle; M20.42 Other hammer toe(s) (acquired), left foot; M77.42 Metatarsalgia, left foot | CPT/HCPCS: 73630; 99024 ==

== ENCOUNTER → 2023-12-06 14:39 | Outpatient (BNVA) | payer MEDICARE, OTHER, SELFPAY | PROVIDERS: PCP Family Medicine; Visit Provider Podiatrist Foot & Ankle Surgery | DX: Z98.890 Other specified postprocedural states (principal); M20.22 Hallux rigidus, left foot; M96.0 Pseudarthrosis after fusion or arthrodesis; M24.572 Contracture, left ankle; M20.42 Other hammer toe(s) (acquired), left foot; M77.42 Metatarsalgia, left foot | CPT/HCPCS: 73630; 99024 ==

== ENCOUNTER → 2023-12-20 13:18 | Outpatient (BNVA) | payer MEDICARE, OTHER, SELFPAY | PROVIDERS: PCP Family Medicine; Visit Provider Podiatrist Foot & Ankle Surgery | DX: M77.42 Metatarsalgia, left foot (principal); Z98.890 Other specified postprocedural states; M20.22 Hallux rigidus, left foot; M96.0 Pseudarthrosis after fusion or arthrodesis; M24.572 Contracture, left ankle; M20.42 Other hammer toe(s) (acquired), left foot | CPT/HCPCS: 73630; 99024 ==

== ENCOUNTER → 2024-01-24 13:10 | Outpatient (BNVA) | payer MEDICARE, OTHER, SELFPAY | PROVIDERS: PCP Family Medicine; Visit Provider Podiatrist Foot & Ankle Surgery | DX: Z98.890 Other specified postprocedural states (principal); M20.22 Hallux rigidus, left foot; M96.0 Pseudarthrosis after fusion or arthrodesis; M24.572 Contracture, left ankle; M20.42 Other hammer toe(s) (acquired), left foot; M77.42 Metatarsalgia, left foot | CPT/HCPCS: 99024 ==

== ENCOUNTER → 2024-02-13 15:23 | Outpatient (BNVA) | payer MEDICARE, OTHER, SELFPAY | PROVIDERS: PCP Family Medicine; Visit Provider Podiatrist Foot & Ankle Surgery | DX: M20.22 Hallux rigidus, left foot; M96.0 Pseudarthrosis after fusion or arthrodesis; M24.572 Contracture, left ankle; M20.42 Other hammer toe(s) (acquired), left foot; M77.42 Metatarsalgia, left foot; Z98.890 Other specified postprocedural states | CPT/HCPCS: 73630; 99213 ==

== ENCOUNTER → 2024-02-26 08:08 | Outpatient (BNVA) | payer MEDICARE, OTHER, SELFPAY | PROVIDERS: PCP Family Medicine; Visit Provider Family Medicine | DX: Z12.5 Encounter for screening for malignant neoplasm of prostate (principal); R79.89 Other specified abnormal findings of blood chemistry; E78.5 Hyperlipidemia, unspecified | CPT/HCPCS: 80061; 84403; G0103 ==

== ENCOUNTER 2024-03-12 14:27 | Outpatient (CLI) | payer MEDICARE, OTHER, SELFPAY | END 2024-03-12 14:28 | disposition home or self-care (01) | LOC: SPT 14:28 | PROVIDERS: PCP Family Medicine; Visit Provider Podiatrist Foot & Ankle Surgery | DX: Z46.89 Encounter for fitting and adjustment of other specified devices (principal); M79.672 Pain in left foot | CPT/HCPCS: 20600; 97760; J1100; J3301; L3030 ==

== ENCOUNTER → 2024-03-19 13:44 | Outpatient (BNVA) | payer MEDICARE, OTHER, SELFPAY | PROVIDERS: PCP Family Medicine; Visit Provider Podiatrist Foot & Ankle Surgery | DX: S92.422A Displaced fracture of distal phalanx of left great toe, initial encounter for closed fracture; W10.9XXA Fall (on) (from) unspecified stairs and steps, initial encounter | CPT/HCPCS: 73630; 99213 ==

== ENCOUNTER → 2024-04-02 13:03 | Outpatient (BNVA) | payer MEDICARE, OTHER, SELFPAY | PROVIDERS: PCP Family Medicine; Visit Provider Podiatrist Foot & Ankle Surgery | DX: S92.422A Displaced fracture of distal phalanx of left great toe, initial encounter for closed fracture; X58.XXXA Exposure to other specified factors, initial encounter | CPT/HCPCS: 99213 ==

== ENCOUNTER → 2024-05-14 09:40 | Outpatient (BNVA) | payer MEDICARE, OTHER, SELFPAY | PROVIDERS: PCP Family Medicine Adult Medicine; Visit Provider Family Medicine Adult Medicine | DX: I10 Essential (primary) hypertension (principal); D69.6 Thrombocytopenia, unspecified; E83.119 Hemochromatosis, unspecified | CPT/HCPCS: 80053; 85025 ==

== ENCOUNTER → 2024-06-25 12:51 | Outpatient (BNVA) | payer MEDICARE, OTHER, SELFPAY | PROVIDERS: PCP Family Medicine Adult Medicine; Visit Provider Podiatrist Foot & Ankle Surgery | DX: M19.072 Primary osteoarthritis, left ankle and foot (principal); M20.22 Hallux rigidus, left foot; M24.572 Contracture, left ankle; M20.42 Other hammer toe(s) (acquired), left foot; M77.42 Metatarsalgia, left foot | CPT/HCPCS: 20600; J1100; J3301 ==

== ENCOUNTER → 2025-01-02 09:23 | Outpatient (BNVA) | payer MEDICARE, OTHER, SELFPAY | PROVIDERS: PCP Family Medicine; Visit Provider Family Medicine | DX: R79.89 Other specified abnormal findings of blood chemistry (principal); E78.5 Hyperlipidemia, unspecified; I10 Essential (primary) hypertension; K76.0 Fatty (change of) liver, not elsewhere classified; K21.9 Gastro-esophageal reflux disease without esophagitis; D58.2 Other hemoglobinopathies | CPT/HCPCS: 80053; 80061; 82728; 83540; 84403; 84443; 84466; 85025 ==

== ENCOUNTER → 2025-01-16 09:02 | Outpatient (BNVA) | payer MEDICARE, OTHER, SELFPAY | PROVIDERS: PCP Family Medicine; Visit Provider Podiatrist Foot & Ankle Surgery | DX: M19.072 Primary osteoarthritis, left ankle and foot (principal); M20.22 Hallux rigidus, left foot; M24.572 Contracture, left ankle | CPT/HCPCS: 20550; 20600; 20605; J1100; J3301; J9999 ==

== ENCOUNTER → 2025-04-04 09:33 | Outpatient (BNVA) | payer MEDICARE, OTHER, SELFPAY | PROVIDERS: PCP Family Medicine; Visit Provider Family Medicine | DX: I10 Essential (primary) hypertension (principal); E78.5 Hyperlipidemia, unspecified; R79.89 Other specified abnormal findings of blood chemistry; Z12.5 Encounter for screening for malignant neoplasm of prostate | CPT/HCPCS: 80053; 80061; 84403; G0103 ==

== ENCOUNTER → 2025-04-30 09:46 | Outpatient (BNVA) | payer MEDICARE, OTHER, SELFPAY | PROVIDERS: PCP Family Medicine; Visit Provider Podiatrist Foot & Ankle Surgery | DX: M19.072 Primary osteoarthritis, left ankle and foot (principal); M24.572 Contracture, left ankle | CPT/HCPCS: 20550; 20600; J1100; J3301; J9999 ==